=== PATIENT | male | born 1970 | race African-American/Black ===

== ENCOUNTER 2016-11-13 11:28 | Inpatient (IN) | payer OTHER ==
[2016-11-13 12:25] VITALS: BMI 28.7
--- NOTE | 2016-11-13 13:26 | HP ---
CIWA Score - CIWA Score Nausea/Vomitin-No Nausea/No Vomiting Muscle Tremors: 4-Moderate,w/Arms Extend Anxiety: 3 Agitation: 4-Moderately Restless Paroxysmal Sweats: 3 Orientation: 0-Oriented Tacttile Disturbances: 0-None Auditory Disturbances: 0-None Visual Disturbances: 0-None Headache: 1-Very Mild CIWA-Ar Total Score: 15 Admission ROS BHS - HPI Chief Complaint: I am here to detox and try again. Allergies/Adverse Reactions: Allergies Allergy/AdvReac Type Severity Reaction Status Date / Time No Known Drug Allergies Allergy Verified 11/13/16 12:58 tuna Allergy Severe Swelling Uncoded 11/13/16 12:58 History of Present Illness: pt is a 45yr old male with a history of alcohol, crack and xanax dependence seeking detox for treatment. Exam Limitations: No Limitations - Ebola screening Have you traveled outside of the country in the last 21 days: No Have you had contact with anyone from an Ebola affected area: No Have you been sick,other than usual withdrawal symptoms: No Do you have a fever: No - Review of Systems Constitutional: Chills, Loss of Appetite, Changes in sleep, Unintentional Wgt. Loss EENT: reports: Tearing, Nose Congestion Respiratory: reports: No Symptoms reported Cardiac: reports: Syncope GI: reports: Diarrhea, Poor Appetite, Poor Fluid Intake : reports: No Symptoms Reported Musculoskeletal: reports: No Symptoms Reported Integumentary: reports: Flushing, Sweating Neuro: reports: Headache, Seizure (last seizure three yrs ago.), Tingling, Tremors Endocrine: reports: Excessive Sweating, Flushing, Intolerance to Cold, Intolerance to Heat Hematology: reports: No Symptoms Reported Psychiatric: reports: Judgement Intact, Mood/Affect Appropiate, Orientated x3, Agitated, Anxious, other Other Systems: Reviewed and Negative Patient History - Patient Medical History Hx Anemia: No Hx Asthma: No Hx Chronic Obstructive Pulmonary Disease (COPD): No Hx Cancer: No Hx Cardiac Disorders: No Hx Congestive Heart Failure: No Hx Hypertension: No Hx Hypercholesterolemia: No Hx Pacemaker: No HX Cerebrovascular Accident: No Hx Seizures: Yes (ETOH SEIZURE IN 2013) Hx Dementia: No Hx Diabetes: No Hx Gastrointestinal Disorders: No Hx Liver Disease: No Hx Genitourinary Disorders: No Hx Sexually Transmitted Disorders: No Hx Renal Disease (ESRD): No Hx Thyroid Disease: No Hx Human Immunodeficiency Virus (HIV): No (negative) Hx Hepatitis C: No (negative) Hx Depression: No Hx Suicide Attempt: No (denies) Hx Bipolar Disorder: No Hx Schizophrenia: No - Patient Surgical History Past Surgical History: No Hx Neurologic Surgery: No Hx Cataract Extraction: No Hx Cardiac Surgery: No Hx Lung Surgery: No Hx Breast Surgery: No Hx Breast Biopsy: No Hx Abdominal Surgery: No Hx Appendectomy: No Hx Cholecystectomy: No Hx Genitourinary Surgery: No Hx Section: No Hx Orthopedic Surgery: No Hx Hysterectomy: No Anesthesia Reaction: No - PPD History Previous Implant?: Yes Documented Results: Negative w/proof Implanted On Prior R Admission?: Yes Date: 06/20/16 Results: 0 MM PPD to be Administered?: No - Reproductive History Patient is a Female of Child Bearing Age (11 -55 yrs old): No - Smoking Cessation Smoking history: Current every day smoker Have you smoked in the past 12 months: Yes Aproximately how many cigarettes per day: 5 Cigars Per Day: 0 Hx Chewing Tobacco Use: No Initiated information on smoking cessation: Yes 'Breaking Loose' booklet given: 11/13/16 - Substance & Tx. History Hx Alcohol Use: Yes Hx Substance Use: Yes Substance Use Type: Alcohol, Cocaine, Tranquilizers Hx Substance Use Treatment: Yes - Substances Abused Alcohol Route: Oral Frequency: Daily Amount used: 3 6PKS BEER/ 1 PINT RUM Age of first use: 25 Date of Last Use: 11/13/16 Crack Route: Smoking Frequency: Daily Amount used: $80 Age of first use: 18 Date of Last Use: 11/13/16 Alprazolam (Xanax) Route: Oral Frequency: Daily Amount used: 4-6 MG Age of first use: 25 Date of Last Use: 11/13/16 Family Disease History - Family Disease History Family Disease History: Other: Mother (ALCOHOL,) Admission Physical Exam BHS - Vital Signs Vital Signs: Vital Signs - 24 hr 11/13/16 12:23 Temperature 98.0 F Pulse Rate 90 Respiratory 20 Rate Blood Pressure 117/72 - Physical General Appearance: Yes: Appropriately Dressed, Moderate Distress, Tremorous, Irritable, Sweating, Anxious HEENTM: Yes: Normal Voice, Nasal Congestion Respiratory: Yes: Lungs Clear, Normal Breath Sounds, No Respiratory Distress Neck: Yes: No masses,lesions,Nodules Breast: Yes: Within Normal Limits Cardiology: Yes: Regular Rhythm, Regular Rate, S1, S2 Abdominal: Yes: Normal Bowel Sounds, Non Tender, Soft Genitourinary: Yes: Within Normal Limits Back: Yes: Normal Inspection Musculoskeletal: Yes: full range of Motion, Gait Steady Extremities: Yes: Normal Capillary Refill, Normal Inspection, Non-Tender, Tremors Neurological: Yes: Fully Oriented, Alert, Normal Response Integumentary: Yes: Normal Color, Diaphoresis Lymphatic: Yes: Within Normal Limits - Diagnostic (1) Sedative, hypnotic or anxiolytic dependence with withdrawal, uncomplicated Current Visit: Yes Status: Chronic (2) Alcohol dependence with uncomplicated withdrawal Current Visit: Yes Status: Chronic (3) Cocaine dependence Current Visit: Yes Status: Chronic Qualifiers: Substance use status: uncomplicated Qualified Code(s): F14.20 - Cocaine dependence, uncomplicated (4) Nicotine dependence Current Visit: Yes Status: Chronic Qualifiers: Nicotine product type: cigarettes Substance use status: uncomplicated Qualified Code(s): F17.210 - Nicotine dependence, cigarettes, uncomplicated Cleared for Admission [facility] - Detox or Rehab [facility] Level of Care: Medically Managed Detox Regimen/Protocol: Librium [facility] Breath Alcohol Content Breath Alcohol Content: 0 Urine Drug Screen - Results Drug Screen Negative: No Urine Drug Screen Results: JOE-Cocaine, BZO-Benzodiazepines, TCA-Tricyclic Antidepress
[2016-11-13] MEDS ORDERED: MAGNESIUM CITRATE 300 ML BOTTLE PO PRN (13:36)
[2016-11-13] MEDS ORDERED: MENTHOL/PHENOL 1 EACH UD MM PRN (13:36)
[2016-11-13] MEDS ORDERED: chlordiazePOXIDE HCL 25 MG CAPSULE PO PRN (13:36)
[2016-11-13] MEDS ORDERED: LOPERAMIDE HCL 2 MG CAPSULE PO PRN (13:36)
[2016-11-13] MEDS ORDERED: MAGNESIUM HYDROX 2400MG/30ML ORAL SUSPENSION 30 ML CUP PO PRN (13:36)
[2016-11-13] MEDS ORDERED: MAG HYDROX/AL HYDROX/SIMETH 30 ML UNIT-DOSE CUP PO PRN (13:36)
[2016-11-13] MEDS ORDERED: ACETAMINOPHEN 325 MG TABLET (FP) PO PRN (13:36)
[2016-11-13] MEDS ORDERED: P-EPHED 60MG/TRIPROLIDI 2.5MG TABLET PO PRN (13:36)
[2016-11-13] MEDS ORDERED: hydrOXYzine PAMOATE 50 MG CAPSULE (FP) PO PRN (13:36)
[2016-11-13] MEDS ORDERED: IBUPROFEN 400 MG TABLET (FP) PO PRN (13:36)
[2016-11-13] MEDS ORDERED: guaiFENesin/D-METHORPHAN HB 10 ML UNIT-DOSE CUPS PO PRN (13:36)
[2016-11-13] MEDS ORDERED: chlordiazePOXIDE HCL 25 MG CAPSULE PO ONE (14:04)
--- NOTE | 2016-11-13 16:21 | EKG ---
Test Reason : Blood Pressure : / mmHG Vent. Rate : 093 BPM Atrial Rate : 093 BPM P-R Int : 158 ms QRS Dur : 088 ms QT Int : 372 ms P-R-T Axes : 064 054 062 degrees QTc Int : 462 ms NORMAL SINUS RHYTHM NORMAL ECG NO PREVIOUS ECGS AVAILABLE Confirmed by NOLBETRO LEIVA MD ([id number]) on 11/13/2016 4:21:19 PM Referred By: Confirmed By:NOLBERTO LEIVA MD
[2016-11-13] MEDS: chlordiazePOXIDE HCL 25 MG CAPSULE PO SCH ×2 (17:10→22:04)
[2016-11-13 20:04] LABS: URINE APPEARANCE CLEAR; URINE BILIRUBIN NEGATIVE (NEGATIVE); URINE BLOOD NEGATIVE (NEGATIVE); URINE COLOR YELLOW; URINE GLUCOSE (UA) NEGATIVE (NEGATIVE); URINE KETONE TRACE (NEGATIVE); URINE NITRITE NEGATIVE (NEGATIVE); URINE UROBILINOGEN 2.0 E.U/dl E.U./dl (0.2-1.0)
[2016-11-13 20:09] LABS: URINE LEUK ESTERASE 2+ (NEGATIVE); URINE PROTEIN 1+ (NEGATIVE)
[2016-11-13 20:14] LABS: URINE MUCUS RARE; URINE RBC 1 /hpf (0-3); URINE WBC 58 /hpf (3-5)
[2016-11-13] MEDS: diphenhydrAMINE HCL 50 MG CAPSULE PO PRN (22:04)
[2016-11-13] MEDS: THIAMINE HCL 100 MG TABLET (FP) PO SCH (22:06)
[2016-11-14] MEDS: chlordiazePOXIDE HCL 25 MG CAPSULE PO SCH ×4 (05:27→22:41)
[2016-11-14 09:44] LABS: MCH 29.1 pg (25.7-33.7); MCHC 32.6 g/dl (32.0-35.9); MEAN CELL VOLUME 89.3 fl (80-96); MEAN PLT VOLUME 8.6 fl (7.5-11.1); PLATELET COUNT 313 K/MM3 (134-434); RDW 14.1 % (11.9-15.9)
[2016-11-14] MEDS: NICOTINE 21 MG/24 HOURS TOPICAL PATCH TD SCH (10:11)
[2016-11-14] MEDS: PRENATAL VITAMINS W/ FOLIC ACID TABLET (FP) PO SCH (10:13)
[2016-11-14 10:30] LABS: ALBUMIN 3.9 g/dl (3.4-5.0); ALK PHOS 111 U/L (45-117); ANION GAP 10 (8-16); BILIRUBIN,TOTAL 0.4 mg/dL (0.2-1.0); CALCIUM 9.4 mg/dL (8.5-10.1); CO2 29 mmol/L (21-32); CREATININE 1.2 mg/dL (0.7-1.3); GLUCOSE,RANDOM 115 mg/dL (74-106); SGOT/AST 30 U/L (15-37); SGPT/ALT 38 U/L (12-78); TOT PROT 7.5 g/dl (6.4-8.2)
--- NOTE | 2016-11-14 11:50 | PN ---
S CIWA - CIWA Score Nausea/Vomitin-No Nausea/No Vomiting Muscle Tremors: 4-Moderate,w/Arms Extend Anxiety: 3 Agitation: 4-Moderately Restless Paroxysmal Sweats: 3 Orientation: 0-Oriented Tacttile Disturbances: 0-None Auditory Disturbances: 0-None Visual Disturbances: 0-None Headache: 0-None Present CIWA-Ar Total Score: 14 BHS Progress Note (SOAP) Subjective: agitation sweats irritable interrupted sleep shakes Objective: 11/14/16 11:49 Vital Signs Temperature 97.7 F 11/14/16 10:01 Pulse Rate 86 11/14/16 10:01 Respiratory Rate 18 11/14/16 10:01 Blood Pressure 132/75 11/14/16 10:01 O2 Sat by Pulse Oximetry (%) Laboratory Tests 11/13/16 11/14/16 11/14/16 16:00 05:50 05:50 WBC 5.0 RBC 4.75 Hgb 13.9 Hct 42.5 MCV 89.3 MCHC 32.6 RDW 14.1 Plt Count 313 MPV 8.6 Sodium 140 Potassium 4.2 Chloride 101 Carbon Dioxide 29 Anion Gap 10 BUN 17 Creatinine 1.2 Creat Clearance w eGFR > 60 Random Glucose 115 H D Calcium 9.4 Total Bilirubin 0.4 D AST 30 ALT 38 Alkaline Phosphatase 111 D Total Protein 7.5 Albumin 3.9 Urine Color Yellow Urine Appearance Clear Urine pH 5.0 Ur Specific [place] 1.027 Urine Protein 1+ H Urine Glucose (UA) Negative Urine Ketones Trace H Urine Blood Negative Urine Nitrite Negative Urine Bilirubin Negative Urine Urobilinogen 2.0 e.u/dl Ur Leukocyte Esterase 2+ H Urine RBC 1 Urine WBC 58 Ur Epithelial Cells Rare Urine Mucus Rare awake/alert ambulating no acute distress Assessment: 11/14/16 11:50 withdrawal sx Plan: continue detox increase fluids ensure plus bid
[2016-11-14] MEDS: diphenhydrAMINE HCL 50 MG CAPSULE PO PRN (22:41)
[2016-11-14] MEDS: THIAMINE HCL 100 MG TABLET (FP) PO SCH (22:41)
[2016-11-15] MEDS: chlordiazePOXIDE HCL 25 MG CAPSULE PO SCH ×2 (05:47→10:02)
[2016-11-15] MEDS: PRENATAL VITAMINS W/ FOLIC ACID TABLET (FP) PO SCH (10:02)
[2016-11-15] MEDS: NICOTINE 21 MG/24 HOURS TOPICAL PATCH TD SCH (10:02)
[2016-11-15 13:48] VITALS: BP 121/75; PULSE 80; TEMP 97.9
--- NOTE | 2016-11-15 14:21 | PN ---
[facility] CIWA - CIWA Score Nausea/Vomitin-Mild Nausea/No Vomiting Muscle Tremors: 2 Anxiety: 2 Agitation: 2 Paroxysmal Sweats: 2 Orientation: 0-Oriented Tacttile Disturbances: 1-Very Mild Itch/Numbness Auditory Disturbances: 0-None Visual Disturbances: 0-None Headache: 0-None Present CIWA-Ar Total Score: 10 S Progress Note (SOAP) Subjective: interrupted sleep, sweats Objective: 11/15/16 14:20 Vital Signs Temperature 97.9 F 11/15/16 13:48 Pulse Rate 80 11/15/16 13:48 Respiratory Rate 20 11/15/16 13:48 Blood Pressure 121/75 11/15/16 13:48 O2 Sat by Pulse Oximetry (%) Laboratory Tests 11/13/16 11/14/16 11/14/16 16:00 05:50 05:50 WBC 5.0 RBC 4.75 Hgb 13.9 Hct 42.5 MCV 89.3 MCHC 32.6 RDW 14.1 Plt Count 313 MPV 8.6 Sodium 140 Potassium 4.2 Chloride 101 Carbon Dioxide 29 Anion Gap 10 BUN 17 Creatinine 1.2 Creat Clearance w eGFR > 60 Random Glucose 115 H D Calcium 9.4 Total Bilirubin 0.4 D AST 30 ALT 38 Alkaline Phosphatase 111 D Total Protein 7.5 Albumin 3.9 Urine Color Yellow Urine Appearance Clear Urine pH 5.0 Ur Specific [place] 1.027 Urine Protein 1+ H Urine Glucose (UA) Negative Urine Ketones Trace H Urine Blood Negative Urine Nitrite Negative Urine Bilirubin Negative Urine Urobilinogen 2.0 e.u/dl Ur Leukocyte Esterase 2+ H Urine RBC 1 Urine WBC 58 Ur Epithelial Cells Rare Urine Mucus Rare RPR Titer T.pallidum Ab (A) 11/14/16 05:50 WBC RBC Hgb Hct MCV MCHC RDW Plt Count MPV Sodium Potassium Chloride Carbon Dioxide Anion Gap BUN Creatinine Creat Clearance w eGFR Random Glucose Calcium Total Bilirubin AST ALT Alkaline Phosphatase Total Protein Albumin Urine Color Urine Appearance Urine pH Ur Specific [place] Urine Protein Urine Glucose (UA) Urine Ketones Urine Blood Urine Nitrite Urine Bilirubin Urine Urobilinogen Ur Leukocyte Esterase Urine RBC Urine WBC Ur Epithelial Cells Urine Mucus RPR Titer Reactive 1:4 H T.pallidum Ab (A) Previously reactive pt aox3 lying in bed in nad 11/15/16 14:47 Assessment: 11/15/16 14:21 withdrawl sx; h/o syphilis- titers unchanged 1:4-treated in 201511/15/16 14:22 11/15/16 14:23 11/15/16 14:47 Plan: cont. detox increase fluids
--- NOTE | 2016-11-15 14:50 | DS ---
[facility] Detox Discharge Summary Admission Date: 11/13/16 Discharge Date: 11/15/16 - History Present History: Alcohol Dependence, Cocaine Dependence, Sedative Dependence - Physical Exam Results Vital Signs: Vital Signs Temperature 97.9 F 11/15/16 13:48 Pulse Rate 80 11/15/16 13:48 Respiratory Rate 20 11/15/16 13:48 Blood Pressure 121/75 11/15/16 13:48 O2 Sat by Pulse Oximetry (%) - Treatment Hospital Course: Detox Protocol Followed, Detoxed Safely, Responded well, Discharged Condition Good - Medication Discharge Medications: Ambulatory Orders NK [No Known Home Medication] 08/06/16 - AMA Did Patient Leave Against Medical Advice: Yes (wants to leave -doesn't want to stay)
[2016-11-15] MEDS ORDERED: chlordiazePOXIDE 5 MG CAPSULE PO SCH (17:00)
[2016-11-16] MEDS ORDERED: chlordiazePOXIDE HCL 10 MG CAPSULE PO SCH (17:00)
== END 2016-11-15 15:07 | disposition left against medical advice (07) | DRG 770 ==
LOC: YASAS 11:28 → Y6N 13:50
PROVIDERS: ADMIT Internal Medicine Addiction Medicine; ATTEND Internal Medicine Addiction Medicine
PROC: HZ2ZZZZ Detoxification Services for Substance Abuse Treatment (ICD-10-PCS; principal; 2016-11-15)
DX: F13.230 Sedative, hypnotic or anxiolytic dependence with withdrawal, uncomplicated (principal); F10.230 Alcohol dependence with withdrawal, uncomplicated; F14.20 Cocaine dependence, uncomplicated; F17.210 Nicotine dependence, cigarettes, uncomplicated; Z59.0 Homelessness
CPT/HCPCS: 36415; 80053; 81003; 81015; 85027; 86593; 86780; 93005; 93010

== ENCOUNTER 2017-01-14 12:53 | Inpatient (IN) | payer OTHER ==
[2017-01-14 13:30] VITALS: BMI 27.8
--- NOTE | 2017-01-14 16:54 | HP ---
CIWA Score - CIWA Score Nausea/Vomitin Muscle Tremors: 3 Anxiety: 3 Agitation: 3 Paroxysmal Sweats: 2 Orientation: 0-Oriented Tacttile Disturbances: 2-Mild Itch/Numbness/Burn Auditory Disturbances: 2-Mild Harshness/Frighten Visual Disturbances: 2-Mild Sensitivity Headache: 2-Mild CIWA-Ar Total Score: 22 Admission ROS BHS - HPI Chief Complaint: i need help to stop drinking alcohol and cocaine,withdrawal symptom,last detox 11/13/16 to 11/15/16 syncope nicotine dependence longest period of sobriety 9 months Allergies/Adverse Reactions: Allergies Allergy/AdvReac Type Severity Reaction Status Date / Time No Known Drug Allergies Allergy Verified 01/14/17 15:44 tuna Allergy Severe Swelling Uncoded 01/14/17 15:44 Exam Limitations: No Limitations - Ebola screening Have you traveled outside of the country in the last 21 days: No Have you had contact with anyone from an Ebola affected area: No Have you been sick,other than usual withdrawal symptoms: No Do you have a fever: No - Review of Systems Constitutional: Loss of Appetite, Malaise, Night Sweats, Changes in sleep, Weakness, Unintentional Wgt. Loss EENT: reports: Nose Congestion Respiratory: reports: No Symptoms reported Cardiac: reports: Palpitations GI: reports: Diarrhea, Nausea, Vomiting, Abdominal cramping : reports: No Symptoms Reported Musculoskeletal: reports: Back Pain, Muscle Pain Integumentary: reports: Dryness Neuro: reports: Headache, Tremors Endocrine: reports: No Symptoms Reported Hematology: reports: No Symptoms Reported Psychiatric: reports: No Sypmtoms Reported, Judgement Intact, Mood/Affect Appropiate, Orientated x3 Patient History - Patient Medical History Hx Anemia: No Hx Asthma: No Hx Chronic Obstructive Pulmonary Disease (COPD): No Hx Cancer: No Hx Cardiac Disorders: No Hx Congestive Heart Failure: No Hx Hypertension: No Hx Hypercholesterolemia: No Hx Pacemaker: No HX Cerebrovascular Accident: No Hx Seizures: No Hx Dementia: No Hx Diabetes: No Hx Gastrointestinal Disorders: No Hx Liver Disease: No Hx Genitourinary Disorders: No Hx Sexually Transmitted Disorders: No Hx Renal Disease (ESRD): No Hx Thyroid Disease: No Hx Human Immunodeficiency Virus (HIV): No (negative last 10/17) Hx Hepatitis C: No (negative) Hx Depression: No Hx Suicide Attempt: No Hx Bipolar Disorder: No Hx Schizophrenia: No Other Medical History: no suicidal,no homicidal - Patient Surgical History Past Surgical History: No Hx Neurologic Surgery: No Hx Cataract Extraction: No Hx Cardiac Surgery: No Hx Lung Surgery: No Hx Breast Surgery: No Hx Breast Biopsy: No Hx Abdominal Surgery: No Hx Appendectomy: No Hx Cholecystectomy: No Hx Genitourinary Surgery: No Hx Section: No Hx Orthopedic Surgery: No Hx Hysterectomy: No Anesthesia Reaction: No - PPD History Previous Implant?: Yes Documented Results: Negative w/proof Implanted On Prior [facility] Admission?: Yes Date: 06/20/16 Results: 0 MM PPD to be Administered?: No - Smoking Cessation Smoking history: Current every day smoker Have you smoked in the past 12 months: Yes Aproximately how many cigarettes per day: 5 Cigars Per Day: 0 Hx Chewing Tobacco Use: No Initiated information on smoking cessation: Yes 'Breaking Loose' booklet given: 01/14/17 - Substance & Tx. History Hx Alcohol Use: Yes Substance Use Type: Alcohol, Cocaine Hx Substance Use Treatment: Yes ([facility] 11/13/16 to 11/15/16) - Substances Abused Alcohol Route: Oral Frequency: Daily Amount used: rum(1 pint)/beer(3-6pks-16oz cans) Age of first use: 25 Date of Last Use: 01/14/17 Crack Route: Smoking Frequency: Daily Amount used: $40-80 Age of first use: 18 Date of Last Use: 01/14/17 Family Disease History - Family Disease History Family Disease History: Other: Mother (ALCOHOL,) Admission Physical Exam S - Vital Signs Vital Signs: Vital Signs - 24 hr 01/14/17 13:25 Temperature 97.4 F L Pulse Rate 78 Respiratory 20 Rate Blood Pressure 124/87 - Physical General Appearance: Yes: Moderate Distress, Tremorous, Irritable, Sweating, Anxious HEENTM: Yes: Hearing grossly Normal, Normal ENT Inspection, ERIK Respiratory: Yes: Lungs Clear, Normal Breath Sounds, No Respiratory Distress Neck: Yes: Within Normal Limits, Supple, Trachea in good position Breast: Yes: Within Normal Limits Cardiology: Yes: Tachycardia Abdominal: Yes: Within Normal Limits, Normal Bowel Sounds, Non Tender, Soft Genitourinary: Yes: Within Normal Limits Back: Yes: Within Normal Limits, Normal Inspection, Muscle Spasm Musculoskeletal: Yes: Back pain, Muscle Pain Extremities: Yes: Within Normal Limits, Normal Range of Motion, Tremors Neurological: Yes: milk powder grinder II-XII NML intact, Fully Oriented, Alert, Motor Strength 5/5 Integumentary: Yes: Dry Lymphatic: Yes: Within Normal Limits - Diagnostic (1) Alcohol dependence with uncomplicated withdrawal Current Visit: No Status: Chronic (2) Cocaine dependence Current Visit: No Status: Chronic Qualifiers: Substance use status: uncomplicated Qualified Code(s): F14.20 - Cocaine dependence, uncomplicated (3) Nicotine dependence Current Visit: No Status: Chronic Qualifiers: Nicotine product type: cigarettes Substance use status: uncomplicated Qualified Code(s): F17.210 - Nicotine dependence, cigarettes, uncomplicated (4) Weight loss Current Visit: Yes Status: Acute (5) Syncope Current Visit: Yes Status: Acute BHS Breath Alcohol Content Breath Alcohol Content: 0 Urine Drug Screen - Results Drug Screen Negative: No Urine Drug Screen Results: JOE-Cocaine
[2017-01-14] MEDS ORDERED: MAGNESIUM CITRATE 300 ML BOTTLE PO PRN (17:06)
[2017-01-14] MEDS ORDERED: MAGNESIUM HYDROX 2400MG/30ML ORAL SUSPENSION 30 ML CUP PO PRN (17:06)
[2017-01-14] MEDS ORDERED: ACETAMINOPHEN 325 MG TABLET (FP) PO PRN (17:06)
[2017-01-14] MEDS ORDERED: MENTHOL/PHENOL 1 EACH UD MM PRN (17:06)
[2017-01-14] MEDS ORDERED: IBUPROFEN 400 MG TABLET (FP) PO PRN (17:06)
[2017-01-14] MEDS ORDERED: guaiFENesin/D-METHORPHAN HB 10 ML UNIT-DOSE CUPS PO PRN (17:06)
[2017-01-14] MEDS ORDERED: chlordiazePOXIDE HCL 25 MG CAPSULE PO PRN (17:06)
[2017-01-14] MEDS ORDERED: MAG HYDROX/AL HYDROX/SIMETH 30 ML UNIT-DOSE CUP PO PRN (17:06)
[2017-01-14] MEDS ORDERED: P-EPHED 60MG/TRIPROLIDI 2.5MG TABLET PO PRN (17:06)
[2017-01-14] MEDS ORDERED: LOPERAMIDE HCL 2 MG CAPSULE PO PRN (17:06)
[2017-01-14] MEDS ORDERED: chlordiazePOXIDE HCL 25 MG CAPSULE PO ONE (17:06)
[2017-01-14] MEDS ORDERED: hydrOXYzine PAMOATE 50 MG CAPSULE (FP) PO PRN (17:06)
[2017-01-14] MEDS: THIAMINE HCL 100 MG TABLET (FP) PO SCH (22:51)
[2017-01-14] MEDS: chlordiazePOXIDE HCL 25 MG CAPSULE PO SCH (22:51)
[2017-01-14] MEDS: diphenhydrAMINE HCL 50 MG CAPSULE PO PRN (22:52)
[2017-01-15] MEDS: chlordiazePOXIDE HCL 25 MG CAPSULE PO SCH ×4 (05:32→22:33)
--- NOTE | 2017-01-15 08:43 | EKG ---
Test Reason : Blood Pressure : / mmHG Vent. Rate : 085 BPM Atrial Rate : 085 BPM P-R Int : 178 ms QRS Dur : 082 ms QT Int : 372 ms P-R-T Axes : 067 056 064 degrees QTc Int : 442 ms NORMAL SINUS RHYTHM POSSIBLE LEFT ATRIAL ENLARGEMENT BORDERLINE ECG WHEN COMPARED WITH ECG OF 13-NOV-2016 14:41, NO SIGNIFICANT CHANGE WAS FOUND Confirmed by ABELARDO TORRES MD ([id number]) on 01/15/2017 8:43:03 AM Referred By: Confirmed By:ABELARDO TORRES MD
[2017-01-15 10:18] LABS: MCH 29.3 pg (25.7-33.7); MCHC 33.1 g/dl (32.0-35.9); MEAN CELL VOLUME 88.4 fl (80-96); MEAN PLT VOLUME 8.3 fl (7.5-11.1); PLATELET COUNT 241 K/MM3 (134-434); RDW 13.8 % (11.9-15.9); WHITE BLOOD COUNT 5.3 K/mm3 (4.0-10.0)
[2017-01-15 10:39] LABS: ALBUMIN 3.4 g/dl (3.4-5.0); ALK PHOS 75 U/L (45-117); ANION GAP 8 (8-16); BILIRUBIN,TOTAL 0.4 mg/dL (0.2-1.0); CALCIUM 8.6 mg/dL (8.5-10.1); CO2 28 mmol/L (21-32); COCKROFT - GAULT 105.37; CREATININE 1.1 mg/dL (0.7-1.3); GLUCOSE,RANDOM 83 mg/dL (74-106); SGOT/AST 15 U/L (15-37); SGPT/ALT 33 U/L (12-78); TOT PROT 6.7 g/dl (6.4-8.2)
[2017-01-15] MEDS: PRENATAL VITAMINS W/ FOLIC ACID TABLET (FP) PO SCH (10:48)
[2017-01-15 13:29] LABS: URINE APPEARANCE CLEAR; URINE BILIRUBIN NEGATIVE (NEGATIVE); URINE BLOOD NEGATIVE (NEGATIVE); URINE COLOR YELLOW; URINE GLUCOSE (UA) NEGATIVE (NEGATIVE); URINE KETONE NEGATIVE (NEGATIVE); URINE NITRITE NEGATIVE (NEGATIVE); URINE PROTEIN NEGATIVE (NEGATIVE); URINE UROBILINOGEN NEGATIVE E.U./dl (0.2-1.0)
--- NOTE | 2017-01-15 13:32 | PN ---
S CIWA - CIWA Score Nausea/Vomitin-No Nausea/No Vomiting Muscle Tremors: 4-Moderate,w/Arms Extend Anxiety: 3 Agitation: 3 Paroxysmal Sweats: 3 Orientation: 0-Oriented Tacttile Disturbances: 0-None Auditory Disturbances: 0-None Visual Disturbances: 0-None Headache: 0-None Present CIWA-Ar Total Score: 13 BHS Progress Note (SOAP) Subjective: Sweating,interrupted sleep,restless,tremors,anxiety Objective: 01/15/17 13:31 Vital Signs - 8 hr 01/15/17 01/15/17 01/15/17 06:26 09:27 13:18 Temperature 95.6 F L 96.2 F L 98.1 F Pulse Rate 89 80 88 Respiratory 18 18 16 Rate Blood Pressure 121/83 133/76 127/78 Laboratory Tests 01/15/17 01/15/17 01/15/17 07:00 07:00 07:00 WBC 5.3 RBC 4.77 Hgb 14.0 Hct 42.2 MCV 88.4 MCHC 33.1 RDW 13.8 Plt Count 241 D MPV 8.3 Sodium 139 Potassium 4.0 Chloride 103 Carbon Dioxide 28 Anion Gap 8 BUN 15 Creatinine 1.1 Creat Clearance w eGFR > 60 Random Glucose 83 D Calcium 8.6 Total Bilirubin 0.4 AST 15 D ALT 33 Alkaline Phosphatase 75 D Total Protein 6.7 Albumin 3.4 RPR Titer Reactive 1:4 H T.pallidum Ab (MHA) Previously reactive labs noted Assessment: 01/15/17 13:32 Withdrawal sx. Plan: Continue detox
[2017-01-15 13:57] LABS: URINE LEUK ESTERASE TRACE (NEGATIVE)
[2017-01-15 14:00] LABS: CALCIUM OXALATE CRYSTALS FEW /hpf (NONE SEEN); URINE MUCUS RARE; URINE RBC <1 /hpf (0-3); URINE WBC 11 /hpf (3-5)
[2017-01-15] MEDS: diphenhydrAMINE HCL 50 MG CAPSULE PO PRN (22:33)
[2017-01-15] MEDS: THIAMINE HCL 100 MG TABLET (FP) PO SCH (22:33)
[2017-01-16] MEDS: chlordiazePOXIDE HCL 25 MG CAPSULE PO SCH ×3 (05:48→17:39)
[2017-01-16] MEDS: PRENATAL VITAMINS W/ FOLIC ACID TABLET (FP) PO SCH (10:38)
--- NOTE | 2017-01-16 12:58 | PN ---
S CIWA - CIWA Score Nausea/Vomitin-No Nausea/No Vomiting Muscle Tremors: 4-Moderate,w/Arms Extend Anxiety: 3 Agitation: 4-Moderately Restless Paroxysmal Sweats: 3 Orientation: 0-Oriented Tacttile Disturbances: 0-None Auditory Disturbances: 0-None Visual Disturbances: 0-None Headache: 0-None Present CIWA-Ar Total Score: 14 BHS Progress Note (SOAP) Subjective: Anxiety,tremors,sweating,interrupted sleep,restless Objective: 01/16/17 12:57 Vital Signs - 8 hr 01/16/17 01/16/17 06:24 09:16 Temperature 96.8 F L Pulse Rate 86 84 Respiratory 18 18 Rate Blood Pressure 100/70 113/82 Laboratory Tests 01/15/17 01/15/17 01/15/17 07:00 07:00 07:00 WBC 5.3 RBC 4.77 Hgb 14.0 Hct 42.2 MCV 88.4 MCHC 33.1 RDW 13.8 Plt Count 241 D MPV 8.3 Sodium 139 Potassium 4.0 Chloride 103 Carbon Dioxide 28 Anion Gap 8 BUN 15 Creatinine 1.1 Creat Clearance w eGFR > 60 Random Glucose 83 D Calcium 8.6 Total Bilirubin 0.4 AST 15 D ALT 33 Alkaline Phosphatase 75 D Total Protein 6.7 Albumin 3.4 Urine Color Urine Appearance Urine pH Ur Specific [place] Urine Protein Urine Glucose (UA) Urine Ketones Urine Blood Urine Nitrite Urine Bilirubin Urine Urobilinogen Ur Leukocyte Esterase Urine RBC Urine WBC Ur Epithelial Cells Calcium Oxalate Crystal Urine Mucus RPR Titer Reactive 1:4 H T.pallidum Ab (A) Previously reactive 01/15/17 10:40 WBC RBC Hgb Hct MCV MCHC RDW Plt Count MPV Sodium Potassium Chloride Carbon Dioxide Anion Gap BUN Creatinine Creat Clearance w eGFR Random Glucose Calcium Total Bilirubin AST ALT Alkaline Phosphatase Total Protein Albumin Urine Color Yellow Urine Appearance Clear Urine pH 5.0 Ur Specific [place] 1.025 Urine Protein Negative Urine Glucose (UA) Negative Urine Ketones Negative Urine Blood Negative Urine Nitrite Negative Urine Bilirubin Negative Urine Urobilinogen Negative Ur Leukocyte Esterase Trace H D Urine RBC <1 Urine WBC 11 Ur Epithelial Cells Rare Calcium Oxalate Crystal Few Urine Mucus Rare RPR Titer T.pallidum Ab (MHA) labs noted Assessment: 01/16/17 12:58 Withdrawal sx. Plan: Continue detox
[2017-01-16] MEDS: diphenhydrAMINE HCL 50 MG CAPSULE PO PRN (22:29)
[2017-01-16] MEDS: THIAMINE HCL 100 MG TABLET (FP) PO SCH (22:29)
[2017-01-16] MEDS: chlordiazePOXIDE 5 MG CAPSULE PO SCH (22:29)
[2017-01-17] MEDS: chlordiazePOXIDE 5 MG CAPSULE PO SCH (05:37)
[2017-01-17 06:31] VITALS: BP 106/76; PULSE 83; TEMP 96.5
--- NOTE | 2017-01-17 08:37 | DS ---
[facility] Detox Discharge Summary Admission Date: 01/14/17 Discharge Date: 01/17/17 - History Present History: Alcohol Dependence, Cocaine Dependence Additional Comments: DECLINED TO COMPLETE DETOX PROTOCOL AND STATES "I JUST WANT TO LEAVE. NO REASONS ". ALERT O X 3. NAD. LAB RESULTS GIVEN TO PATIENT. INSTRUCTED TO F/U WITH PMD FOR MEDICAL MANAGEMENT. Pertinent Past History: DENIES PMHx OR PPSYCH Hx - Physical Exam Results Vital Signs: Vital Signs Temperature 96.5 F L 01/17/17 06:30 Pulse Rate 83 01/17/17 06:30 Respiratory Rate 18 01/17/17 06:30 Blood Pressure 106/76 01/17/17 06:30 O2 Sat by Pulse Oximetry (%) Pertinent Admission Physical Exam Findings: WITHDRAWAL SX Laboratory Last Values WBC 5.3 K/mm3 (4.0-10.0) 01/15/17 07:00 RBC 4.77 M/mm3 (4.00-5.60) 01/15/17 07:00 Hgb 14.0 GM/dL (11.7-16.9) 01/15/17 07:00 Hct 42.2 % (35.4-49) 01/15/17 07:00 MCV 88.4 fl (80-96) 01/15/17 07:00 MCHC 33.1 g/dl (32.0-35.9) 01/15/17 07:00 RDW 13.8 % (11.9-15.9) 01/15/17 07:00 Plt Count 241 K/MM3 (134-434) D 01/15/17 07:00 MPV 8.3 fl (7.5-11.1) 01/15/17 07:00 Sodium 139 mmol/L (136-145) 01/15/17 07:00 Potassium 4.0 mmol/L (3.5-5.1) 01/15/17 07:00 Chloride 103 mmol/L (98-107) 01/15/17 07:00 Carbon Dioxide 28 mmol/L (21-32) 01/15/17 07:00 Anion Gap 8 (8-16) 01/15/17 07:00 BUN 15 mg/dL (7-18) 01/15/17 07:00 Creatinine 1.1 mg/dL (0.7-1.3) 01/15/17 07:00 Creat Clearance w eGFR > 60 (>60) 01/15/17 07:00 Random Glucose 83 mg/dL (74-106) D 01/15/17 07:00 Calcium 8.6 mg/dL (8.5-10.1) 01/15/17 07:00 Total Bilirubin 0.4 mg/dL (0.2-1.0) 01/15/17 07:00 AST 15 U/L (15-37) D 01/15/17 07:00 ALT 33 U/L (12-78) 01/15/17 07:00 Alkaline Phosphatase 75 U/L (45-117) D 01/15/17 07:00 Total Protein 6.7 g/dl (6.4-8.2) 01/15/17 07:00 Albumin 3.4 g/dl (3.4-5.0) 01/15/17 07:00 Urine Color Yellow 01/15/17 10:40 Urine Appearance Clear 01/15/17 10:40 Urine pH 5.0 (5.0-8.0) 01/15/17 10:40 Ur Specific [place] 1.025 (1.001-1.035) 01/15/17 10:40 Urine Protein Negative (NEGATIVE) 01/15/17 10:40 Urine Glucose (UA) Negative (NEGATIVE) 01/15/17 10:40 Urine Ketones Negative (NEGATIVE) 01/15/17 10:40 Urine Blood Negative (NEGATIVE) 01/15/17 10:40 Urine Nitrite Negative (NEGATIVE) 01/15/17 10:40 Urine Bilirubin Negative (NEGATIVE) 01/15/17 10:40 Urine Urobilinogen Negative E.U./dl (0.2-1.0) 01/15/17 10:40 Ur Leukocyte Esterase Trace (NEGATIVE) H D 01/15/17 10:40 Urine RBC <1 /hpf (0-3) 01/15/17 10:40 Urine WBC 11 /hpf (3-5) 01/15/17 10:40 Ur Epithelial Cells Rare /hpf (FEW) 01/15/17 10:40 Calcium Oxalate Crystal Few /hpf (NONE SEEN) 01/15/17 10:40 Urine Mucus Rare 01/15/17 10:40 RPR Titer Reactive 1:4 (NONREACTIVE) H 01/15/17 07:00 T.pallidum Ab ([facility]) Previously reactive (NONREACTIVE) 01/15/17 07:00 - Treatment Hospital Course: Discharged Condition Good - Medication Discharge Medications: Ambulatory Orders NK [No Known Home Medication] 08/06/16 - Diagnosis (1) Alcohol dependence with uncomplicated withdrawal Current Visit: No Status: Chronic (2) Cocaine dependence Current Visit: No Status: Chronic Qualifiers: Substance use status: uncomplicated Qualified Code(s): F14.20 - Cocaine dependence, uncomplicated (3) Nicotine dependence Current Visit: No Status: Chronic Qualifiers: Nicotine product type: cigarettes Substance use status: uncomplicated Qualified Code(s): F17.210 - Nicotine dependence, cigarettes, uncomplicated (4) Sedative, hypnotic or anxiolytic dependence with withdrawal, uncomplicated Current Visit: No Status: Inactive - AMA Did Patient Leave Against Medical Advice: Yes (AMA)
[2017-01-17] MEDS ORDERED: chlordiazePOXIDE HCL 10 MG CAPSULE PO SCH (23:00)
== END 2017-01-17 09:31 | disposition left against medical advice (07) | DRG 770 ==
LOC: YASAS 12:53 → Y3N 16:00
PROVIDERS: ADMIT Internal Medicine; ATTEND Internal Medicine
PROC: HZ2ZZZZ Detoxification Services for Substance Abuse Treatment (ICD-10-PCS; principal; 2017-01-17)
DX: F13.230 Sedative, hypnotic or anxiolytic dependence with withdrawal, uncomplicated (principal); F10.230 Alcohol dependence with withdrawal, uncomplicated; F14.20 Cocaine dependence, uncomplicated; F12.10 Cannabis abuse, uncomplicated; R55 Syncope and collapse; R63.4 Abnormal weight loss; Z68.27 Body mass index [BMI] 27.0-27.9, adult; Z59.0 Homelessness
CPT/HCPCS: 36415; 80053; 81003; 81015; 85027; 86593; 86780; 93005; 93010

== ENCOUNTER 2017-07-23 08:26 | Inpatient (IN) | payer OTHER ==
[2017-07-23 08:39] VITALS: BMI 27.1
--- NOTE | 2017-07-23 13:58 | HP ---
CIWA Score - CIWA Score Nausea/Vomitin-Int. Nausea w/Dry Heave Muscle Tremors: 4-Moderate,w/Arms Extend Anxiety: 4-Mod. Anxious/Guarded Agitation: 0-Normal Activity Paroxysmal Sweats: 1-Minimal Palms Moist Orientation: 0-Oriented Tacttile Disturbances: 0-None Auditory Disturbances: 0-None Visual Disturbances: 0-None Headache: 0-None Present CIWA-Ar Total Score: 13 Admission ROS S - HPI Chief Complaint: DETOX TX FOR ALCOHOL AND XANAX DEPENDENCE Allergies/Adverse Reactions: Allergies Allergy/AdvReac Type Severity Reaction Status Date / Time No Known Drug Allergies Allergy Verified 07/23/17 13:25 tuna Allergy Severe Swelling Uncoded 07/23/17 13:25 History of Present Illness: 46 Y/O AA MALE WITH A HX OF ALCOHOL,XANAX AND COCAINE DEPENDENCE SEEKING DETOX TX. Exam Limitations: No Limitations - Ebola screening Have you traveled outside of the country in the last 21 days: No Have you had contact with anyone from an Ebola affected area: No Have you been sick,other than usual withdrawal symptoms: No Do you have a fever: No - Review of Systems Constitutional: Chills, Loss of Appetite, Night Sweats, Changes in sleep, Unintentional Wgt. Loss EENT: reports: Blurred Vision, Tearing, Nose Congestion Respiratory: reports: No Symptoms reported Cardiac: reports: Lightheadedness GI: reports: Constipated, Diarrhea, Nausea, Poor Appetite, Poor Fluid Intake, Vomiting, Indigestion : reports: Frequency Musculoskeletal: reports: Joint Pain, Muscle Pain Integumentary: reports: No Symptoms Reported Neuro: reports: Headache, Numbness, Seizure (HX SEIZURE, LAST EPISODE 3 YRS AGO) , Tingling, Tremors, Unsteady Gait, Dizziness Endocrine: reports: No Symptoms Reported Hematology: reports: No Symptoms Reported Psychiatric: reports: Anxious Other Systems: Reviewed and Negative Patient History - Patient Medical History Hx Anemia: No Hx Asthma: No Hx Chronic Obstructive Pulmonary Disease (COPD): No Hx Cancer: No Hx Cardiac Disorders: No Hx Congestive Heart Failure: No Hx Hypertension: No Hx Hypercholesterolemia: No Hx Pacemaker: No HX Cerebrovascular Accident: No Hx Seizures: No Hx Dementia: No Hx Diabetes: No Hx Gastrointestinal Disorders: No Hx Liver Disease: No Hx Genitourinary Disorders: No Hx Sexually Transmitted Disorders: Yes (syphilis Hx) Hx Renal Disease (ESRD): No Hx Thyroid Disease: No Hx Human Immunodeficiency Virus (HIV): No (NEGATIVE HX) Hx Hepatitis C: No (negative) Hx Depression: No Hx Suicide Attempt: No (DENIES) Hx Bipolar Disorder: No Hx Schizophrenia: No - Patient Surgical History Past Surgical History: No Hx Neurologic Surgery: No Hx Cataract Extraction: No Hx Cardiac Surgery: No Hx Lung Surgery: No Hx Breast Surgery: No Hx Breast Biopsy: No Hx Abdominal Surgery: No Hx Appendectomy: No Hx Cholecystectomy: No Hx Genitourinary Surgery: No Hx Orthopedic Surgery: No Anesthesia Reaction: No - PPD History Previous Implant?: Yes Documented Results: Negative w/proof Implanted On Prior [facility] Admission?: Yes Date: 06/20/16 Results: 0 mm PPD to be Administered?: Yes - Reproductive History Patient is a Female of Child Bearing Age (11 -55 yrs old): No (MALE) Patient : (N/A) - Smoking Cessation Smoking history: Current every day smoker Have you smoked in the past 12 months: Yes Aproximately how many cigarettes per day: 5 Cigars Per Day: 0 Hx Chewing Tobacco Use: No Initiated information on smoking cessation: Yes 'Breaking Loose' booklet given: 07/23/17 - Substance & Tx. History Hx Alcohol Use: Yes (BEER/RUM) Hx Substance Use: Yes (XANAX/CRACK) Substance Use Type: Alcohol, Cocaine, Tranquilizers Hx Substance Use [facility]: Yes [facility] - Substances Abused Crack Route: Smoking Frequency: Daily Amount used: $60-80 Age of first use: 18 Date of Last Use: 07/23/17 Alcohol-beer/rum Route: Oral Frequency: Daily Amount used: 3-6 pks./1 pt. Age of first use: 25 Date of Last Use: 07/23/17 Xanax Route: Oral Frequency: 1-2 times per week Amount used: 4 mg. Age of first use: 46 Date of Last Use: 07/21/17 Family Disease History - Family Disease History Family Disease History: Other: Mother (ALCOHOL,) Admission Physical Exam BHS - Vital Signs Vital Signs: Vital Signs - 24 hr 07/23/17 08:36 Temperature 98.0 F Pulse Rate 80 Respiratory 18 Rate Blood Pressure 140/92 - Physical General Appearance: Yes: Moderate Distress, Irritable, Anxious HEENTM: Yes: EOMI, Normocephalic, ERIK, Pharynx Normal Respiratory: Yes: Chest Non-Tender, Lungs Clear, Normal Breath Sounds, No Respiratory Distress Neck: Yes: No masses,lesions,Nodules, Supple, Trachea in good position Breast: Yes: Breast Exam Deferred Cardiology: Yes: Regular Rhythm, Regular Rate, S1, S2 Abdominal: Yes: Normal Bowel Sounds, Non Tender, Soft Genitourinary: Yes: Other (N/C) Back: Yes: Within Normal Limits Musculoskeletal: Yes: full range of Motion, Gait Steady Extremities: Yes: Normal Range of Motion, Non-Tender, Other (LEFT LOWER EXTREMITY SLIGHTLY BIGGER THAN RIGHT. VARICOSE VEINS ON LEFT LOWER LEG. STATES HX SONOGRAM WITH NEGATIVE RESULT FOR CLOT.) Neurological: Yes: director of corporate sales II-XII NML intact, Fully Oriented, Alert, Motor Strength 5/5 Integumentary: Yes: Warm Lymphatic: Yes: Within Normal Limits - Diagnostic (1) Alcohol dependence with uncomplicated withdrawal Current Visit: Yes Status: Acute (2) Nicotine dependence Current Visit: Yes Status: Chronic Qualifiers: Nicotine product type: cigarettes Substance use status: in withdrawal Qualified Code(s): F17.213 - Nicotine dependence, cigarettes, with withdrawal; F17.213 - Nicotine dependence, cigarettes, with withdrawal (3) Cocaine dependence Current Visit: Yes Status: Acute Qualifiers: Substance use status: uncomplicated Qualified Code(s): F14.20 - Cocaine dependence, uncomplicated; F14.20 - Cocaine dependence, uncomplicated; F14.20 - Cocaine dependence, uncomplicated (4) Sedative, hypnotic or anxiolytic dependence with withdrawal, uncomplicated Current Visit: Yes Status: Acute Comment: STARTED USING "XANAX THIS YEAR" Cleared for Admission [facility] - Detox or Rehab [facility] Level of Care: Medically Managed Detox Regimen/Protocol: Librium [facility] Breath Alcohol Content Breath Alcohol Content: 0 Urine Drug Screen - Results Drug Screen Negative: No Urine Drug Screen Results: JOE-Cocaine, BZO-Benzodiazepines
[2017-07-23] MEDS ORDERED: P-EPHED 60MG/TRIPROLIDI 2.5MG TABLET PO PRN (14:08)
[2017-07-23] MEDS ORDERED: MAGNESIUM CITRATE 300 ML BOTTLE PO PRN (14:08)
[2017-07-23] MEDS ORDERED: MAGNESIUM HYDROX 2400MG/30ML ORAL SUSPENSION 30 ML CUP PO PRN (14:08)
[2017-07-23] MEDS ORDERED: IBUPROFEN 400 MG TABLET (FP) PO PRN (14:08)
[2017-07-23] MEDS ORDERED: LOPERAMIDE HCL 2 MG CAPSULE PO PRN (14:08)
[2017-07-23] MEDS ORDERED: hydrOXYzine PAMOATE 50 MG CAPSULE (FP) PO PRN (14:08)
[2017-07-23] MEDS ORDERED: MENTHOL/PHENOL 1 EACH UD MM PRN (14:08)
[2017-07-23] MEDS ORDERED: guaiFENesin/D-METHORPHAN HB 10 ML UNIT-DOSE CUPS PO PRN (14:08)
[2017-07-23] MEDS ORDERED: NICOTINE POLACRILEX 2 MG GUM BUC PRN (14:08)
[2017-07-23] MEDS ORDERED: ACETAMINOPHEN 325 MG TABLET (FP) PO PRN (14:08)
[2017-07-23] MEDS ORDERED: chlordiazePOXIDE HCL 25 MG CAPSULE PO PRN (14:08)
[2017-07-23] MEDS ORDERED: MAG HYDROX/AL HYDROX/SIMETH 30 ML UNIT-DOSE CUP PO PRN (14:08)
[2017-07-23] MEDS ORDERED: chlordiazePOXIDE HCL 25 MG CAPSULE PO ONE (14:38)
[2017-07-23] MEDS: NICOTINE 14 MG/24 HOURS TOPICAL PATCH TD SCH (15:14)
[2017-07-23 16:16] LABS: MCHC 34.2 g/dl (32.0-35.9); MEAN CELL VOLUME 87.6 fl (80-96); MEAN PLT VOLUME 8.4 fl (7.5-11.1); PLATELET COUNT 280 K/MM3 (134-434); RDW 14.5 % (11.9-15.9); WHITE BLOOD COUNT 5.2 K/mm3 (4.0-10.0)
[2017-07-23 16:43] LABS: ANION GAP 10 (8-16); CALCIUM 8.9 mg/dL (8.5-10.1); CO2 28 mmol/L (21-32); GLUCOSE,RANDOM 100 mg/dL (74-106)
[2017-07-23 16:47] LABS: ALK PHOS 88 U/L (45-117); BILIRUBIN,TOTAL 0.9 mg/dL (0.2-1.0); CREATININE 0.9 mg/dL (0.7-1.3); SGOT/AST 40 U/L (15-37); SGPT/ALT 67 U/L (12-78); TOT PROT 7.6 g/dl (6.4-8.2)
[2017-07-23 17:26] LABS: URINE APPEARANCE SLCLOUDY; URINE BILIRUBIN NEGATIVE (NEGATIVE); URINE BLOOD NEGATIVE (NEGATIVE); URINE COLOR AMBER; URINE GLUCOSE (UA) NEGATIVE (NEGATIVE); URINE KETONE NEGATIVE (NEGATIVE); URINE NITRITE NEGATIVE (NEGATIVE); URINE UROBILINOGEN 4.0 E.U/dl mg/dL (0.2-1.0)
[2017-07-23 17:27] LABS: URINE PROTEIN 2+ (NEGATIVE)
[2017-07-23 17:36] LABS: URINE MUCUS RARE; URINE RBC 1 /hpf (0-3); URINE WBC 11 /hpf (3-5)
[2017-07-23] MEDS: chlordiazePOXIDE HCL 25 MG CAPSULE PO SCH ×2 (17:55→22:48)
[2017-07-23 21:09] LABS: URINE LEUK ESTERASE Negative (NEGATIVE)
[2017-07-23] MEDS: THIAMINE HCL 100 MG TABLET (FP) PO SCH (22:50)
[2017-07-24] MEDS: chlordiazePOXIDE HCL 25 MG CAPSULE PO SCH ×4 (05:23→22:55)
--- NOTE | 2017-07-24 10:40 | PN ---
S CIWA - CIWA Score Nausea/Vomitin Muscle Tremors: 3 Anxiety: 3 Agitation: 2 Paroxysmal Sweats: 1-Minimal Palms Moist Orientation: 0-Oriented Tacttile Disturbances: 1-Very Mild Itch/Numbness Auditory Disturbances: 1-Very Mild Visual Disturbances: 0-None Headache: 2-Mild CIWA-Ar Total Score: 16 BHS Progress Note (SOAP) Subjective: alert,irritable,anxious,interrupted sleep,tremor,nausea Objective: Vital Signs Temperature 97.4 F L 07/24/17 10:17 Pulse Rate 104 H 07/24/17 10:17 Respiratory Rate 18 07/24/17 10:17 Blood Pressure 118/79 07/24/17 10:17 O2 Sat by Pulse Oximetry (%) 07/24/17 10:38 ecg nsr normal Laboratory Last Values WBC 5.2 K/mm3 (4.0-10.0) 07/23/17 14:15 RBC 4.71 M/mm3 (4.00-5.60) 07/23/17 14:15 Hgb 14.1 GM/dL (11.7-16.9) 07/23/17 14:15 Hct 41.3 % (35.4-49) 07/23/17 14:15 MCV 87.6 fl (80-96) 07/23/17 14:15 MCH 30.0 pg (25.7-33.7) 07/23/17 14:15 MCHC 34.2 g/dl (32.0-35.9) 07/23/17 14:15 RDW 14.5 % (11.9-15.9) 07/23/17 14:15 Plt Count 280 K/MM3 (134-434) 07/23/17 14:15 MPV 8.4 fl (7.5-11.1) 07/23/17 14:15 Sodium 139 mmol/L (136-145) 07/23/17 14:15 Potassium 4.1 mmol/L (3.5-5.1) 07/23/17 14:15 Chloride 101 mmol/L (98-107) 07/23/17 14:15 Carbon Dioxide 28 mmol/L (21-32) 07/23/17 14:15 Anion Gap 10 (8-16) 07/23/17 14:15 BUN 15 mg/dL (7-18) 07/23/17 14:15 Creatinine 0.9 mg/dL (0.7-1.3) 07/23/17 14:15 Creat Clearance w eGFR > 60 (>60) 07/23/17 14:15 Random Glucose 100 mg/dL (74-106) D 07/23/17 14:15 Calcium 8.9 mg/dL (8.5-10.1) 07/23/17 14:15 Total Bilirubin 0.9 mg/dL (0.2-1.0) D 07/23/17 14:15 AST 40 U/L (15-37) H D 07/23/17 14:15 ALT 67 U/L (12-78) D 07/23/17 14:15 Alkaline Phosphatase 88 U/L (45-117) 07/23/17 14:15 Total Protein 7.6 g/dl (6.4-8.2) 07/23/17 14:15 Albumin 4.0 g/dl (3.4-5.0) 07/23/17 14:15 Urine Color Ana 07/23/17 15:30 Urine Appearance Slcloudy 07/23/17 15:30 Urine pH 6.0 (5.0-8.0) 07/23/17 15:30 Ur Specific [place] 1.020 (1.005-1.025) 07/23/17 15:30 Urine Protein 2+ (NEGATIVE) H 07/23/17 15:30 Urine Glucose (UA) Negative (NEGATIVE) 07/23/17 15:30 Urine Ketones Negative (NEGATIVE) 07/23/17 15:30 Urine Blood Negative (NEGATIVE) 07/23/17 15:30 Urine Nitrite Negative (NEGATIVE) 07/23/17 15:30 Urine Bilirubin Negative (NEGATIVE) 07/23/17 15:30 Urine Urobilinogen 4.0 e.u/dl mg/dL (0.2-1.0) 07/23/17 15:30 Ur Leukocyte Esterase Negative (NEGATIVE) 07/23/17 15:30 Urine RBC 1 /hpf (0-3) 07/23/17 15:30 Urine WBC 11 /hpf (3-5) 07/23/17 15:30 Ur Epithelial Cells Rare /hpf (FEW) 07/23/17 15:30 Urine Mucus Rare 07/23/17 15:30 Assessment: 10/24/17 10:38 07/24/17 10:39 withdrawal symptom Plan: continue detox
[2017-07-24] MEDS: NICOTINE 14 MG/24 HOURS TOPICAL PATCH TD SCH (10:44)
[2017-07-24] MEDS: PRENATAL VITAMINS W/ FOLIC ACID TABLET (FP) PO SCH (10:44)
--- NOTE | 2017-07-24 20:33 | EKG ---
Test Reason : Blood Pressure : / mmHG Vent. Rate : 061 BPM Atrial Rate : 061 BPM P-R Int : 148 ms QRS Dur : 080 ms QT Int : 416 ms P-R-T Axes : 025 045 051 degrees QTc Int : 418 ms NORMAL SINUS RHYTHM NORMAL ECG WHEN COMPARED WITH ECG OF 14-JAN-2017 17:19, NO SIGNIFICANT CHANGE WAS FOUND Confirmed by ASIA MCCALL MD ([id number]) on 07/24/2017 8:33:07 PM Referred By: Confirmed By:ASIA MCCALL MD
[2017-07-24] MEDS: THIAMINE HCL 100 MG TABLET (FP) PO SCH (22:55)
[2017-07-25] MEDS: chlordiazePOXIDE HCL 25 MG CAPSULE PO SCH ×2 (05:25→10:36)
[2017-07-25] MEDS: NICOTINE 14 MG/24 HOURS TOPICAL PATCH TD SCH (10:37)
[2017-07-25] MEDS: PRENATAL VITAMINS W/ FOLIC ACID TABLET (FP) PO SCH (10:38)
--- NOTE | 2017-07-25 11:45 | PN ---
S CIWA - CIWA Score Nausea/Vomitin Muscle Tremors: 3 Anxiety: 3 Agitation: 3 Paroxysmal Sweats: 1-Minimal Palms Moist Orientation: 0-Oriented Tacttile Disturbances: 1-Very Mild Itch/Numbness Auditory Disturbances: 1-Very Mild Visual Disturbances: 0-None Headache: 2-Mild CIWA-Ar Total Score: 17 BHS Progress Note (SOAP) Subjective: alert,irritable,anxious,interrupted sleep,tremor Objective: 07/25/17 11:43 Vital Signs Temperature 96.8 F L 07/25/17 10:00 Pulse Rate 100 H 07/25/17 10:00 Respiratory Rate 16 07/25/17 10:00 Blood Pressure 116/77 07/25/17 10:00 O2 Sat by Pulse Oximetry (%) Laboratory Last Values WBC 5.2 K/mm3 (4.0-10.0) 07/23/17 14:15 RBC 4.71 M/mm3 (4.00-5.60) 07/23/17 14:15 Hgb 14.1 GM/dL (11.7-16.9) 07/23/17 14:15 Hct 41.3 % (35.4-49) 07/23/17 14:15 MCV 87.6 fl (80-96) 07/23/17 14:15 MCH 30.0 pg (25.7-33.7) 07/23/17 14:15 MCHC 34.2 g/dl (32.0-35.9) 07/23/17 14:15 RDW 14.5 % (11.9-15.9) 07/23/17 14:15 Plt Count 280 K/MM3 (134-434) 07/23/17 14:15 MPV 8.4 fl (7.5-11.1) 07/23/17 14:15 Sodium 139 mmol/L (136-145) 07/23/17 14:15 Potassium 4.1 mmol/L (3.5-5.1) 07/23/17 14:15 Chloride 101 mmol/L (98-107) 07/23/17 14:15 Carbon Dioxide 28 mmol/L (21-32) 07/23/17 14:15 Anion Gap 10 (8-16) 07/23/17 14:15 BUN 15 mg/dL (7-18) 07/23/17 14:15 Creatinine 0.9 mg/dL (0.7-1.3) 07/23/17 14:15 Creat Clearance w eGFR > 60 (>60) 07/23/17 14:15 Random Glucose 100 mg/dL (74-106) D 07/23/17 14:15 Calcium 8.9 mg/dL (8.5-10.1) 07/23/17 14:15 Total Bilirubin 0.9 mg/dL (0.2-1.0) D 07/23/17 14:15 AST 40 U/L (15-37) H D 07/23/17 14:15 ALT 67 U/L (12-78) D 07/23/17 14:15 Alkaline Phosphatase 88 U/L (45-117) 07/23/17 14:15 Total Protein 7.6 g/dl (6.4-8.2) 07/23/17 14:15 Albumin 4.0 g/dl (3.4-5.0) 07/23/17 14:15 Urine Color Ana 07/23/17 15:30 Urine Appearance Slcloudy 07/23/17 15:30 Urine pH 6.0 (5.0-8.0) 07/23/17 15:30 Ur Specific [place] 1.020 (1.005-1.025) 07/23/17 15:30 Urine Protein 2+ (NEGATIVE) H 07/23/17 15:30 Urine Glucose (UA) Negative (NEGATIVE) 07/23/17 15:30 Urine Ketones Negative (NEGATIVE) 07/23/17 15:30 Urine Blood Negative (NEGATIVE) 07/23/17 15:30 Urine Nitrite Negative (NEGATIVE) 07/23/17 15:30 Urine Bilirubin Negative (NEGATIVE) 07/23/17 15:30 Urine Urobilinogen 4.0 e.u/dl mg/dL (0.2-1.0) 07/23/17 15:30 Ur Leukocyte Esterase Negative (NEGATIVE) 07/23/17 15:30 Urine RBC 1 /hpf (0-3) 07/23/17 15:30 Urine WBC 11 /hpf (3-5) 07/23/17 15:30 Ur Epithelial Cells Rare /hpf (FEW) 07/23/17 15:30 Urine Mucus Rare 07/23/17 15:30 RPR Titer Reactive 1:2 (NONREACTIVE) H D 07/23/17 14:15 T.pallidum Ab (MHA) Previously reactive (NONREACTIVE) 07/23/17 14:15 previous treated for syphilis Assessment: 07/25/17 11:44 withdrawal symptom Plan: continue detox
[2017-07-25] MEDS: chlordiazePOXIDE 5 MG CAPSULE PO SCH ×2 (17:49→22:39)
[2017-07-25] MEDS: diphenhydrAMINE HCL 50 MG CAPSULE PO PRN (22:39)
[2017-07-25] MEDS: THIAMINE HCL 100 MG TABLET (FP) PO SCH (22:39)
[2017-07-26] MEDS: chlordiazePOXIDE 5 MG CAPSULE PO SCH ×2 (06:10→10:50)
--- NOTE | 2017-07-26 10:44 | PN ---
BHS Progress Note (SOAP) Subjective: alert,irritable.anxious,interrupted sleep Objective: 07/26/17 10:43 Vital Signs Temperature 96.5 F L 07/26/17 09:58 Pulse Rate 80 07/26/17 09:58 Respiratory Rate 18 07/26/17 09:58 Blood Pressure 136/88 07/26/17 09:58 O2 Sat by Pulse Oximetry (%) Assessment: 07/26/17 10:43 withdrawal symptom Plan: continue detox,discharge in am
[2017-07-26] MEDS: PRENATAL VITAMINS W/ FOLIC ACID TABLET (FP) PO SCH (10:50)
[2017-07-26] MEDS: NICOTINE 14 MG/24 HOURS TOPICAL PATCH TD SCH (10:50)
[2017-07-26] MEDS: chlordiazePOXIDE HCL 10 MG CAPSULE PO SCH ×2 (17:40→22:08)
[2017-07-26] MEDS: THIAMINE HCL 100 MG TABLET (FP) PO SCH (22:08)
[2017-07-26] MEDS: diphenhydrAMINE HCL 50 MG CAPSULE PO PRN (22:08)
[2017-07-27] MEDS: chlordiazePOXIDE HCL 10 MG CAPSULE PO SCH (05:56)
--- NOTE | 2017-07-27 08:47 | DS ---
[facility] Detox Discharge Summary Admission Date: 07/23/17 Discharge Date: 07/27/17 - History Present History: Alcohol Dependence, Cocaine Dependence, Sedative Dependence Additional Comments: FOLLOW UP WITH AFTER CARE PROGRAM ARRANGEMENT Pertinent Past History: NICOTINE DEPENDENCE - Physical Exam Results Vital Signs: Vital Signs Temperature 97.5 F L 07/27/17 06:00 Pulse Rate 71 07/27/17 06:00 Respiratory Rate 18 07/27/17 06:00 Blood Pressure 101/63 07/27/17 06:00 O2 Sat by Pulse Oximetry (%) Pertinent Admission Physical Exam Findings: WITHDRAWAL SYMPTOM - Treatment Hospital Course: Detox Protocol Followed, Detoxed Safely, Responded well, Discharged Condition Good, Rehab Referral Accepted Patient has Accepted a Rehab Referral to: [facility] - Medication Discharge Medications: Ambulatory Orders NK [No Known Home Medication] 08/06/16 - Diagnosis (1) Alcohol dependence with uncomplicated withdrawal Current Visit: Yes Status: Acute (2) Sedative, hypnotic or anxiolytic dependence with withdrawal, uncomplicated Current Visit: Yes Status: Acute (3) Nicotine dependence Current Visit: Yes Status: Chronic Qualifiers: Nicotine product type: cigarettes Substance use status: in withdrawal Qualified Code(s): F17.213 - Nicotine dependence, cigarettes, with withdrawal; F17.213 - Nicotine dependence, cigarettes, with withdrawal (4) Syncope Current Visit: No Status: Acute (5) Weight loss Current Visit: No Status: Acute - AMA Did Patient Leave Against Medical Advice: No
[2017-07-27] MEDS: PRENATAL VITAMINS W/ FOLIC ACID TABLET (FP) PO SCH (10:38)
[2017-07-27] MEDS: NICOTINE 14 MG/24 HOURS TOPICAL PATCH TD SCH (10:40)
[2017-07-27 10:48] VITALS: BP 116/81; PULSE 84; TEMP 97.7
== END 2017-07-27 11:25 | disposition home or self-care (01) | DRG 775 ==
LOC: YASAS 08:26 → Y6N 13:57
PROVIDERS: ADMIT Internal Medicine; ATTEND Internal Medicine
PROC: HZ2ZZZZ Detoxification Services for Substance Abuse Treatment (ICD-10-PCS; principal; 2017-07-23)
DX: F13.230 Sedative, hypnotic or anxiolytic dependence with withdrawal, uncomplicated (principal); F10.230 Alcohol dependence with withdrawal, uncomplicated; F17.213 Nicotine dependence, cigarettes, with withdrawal; Z91.013 Allergy to seafood; Z86.79 Personal history of other diseases of the circulatory system; Z87.898 Personal history of other specified conditions; Z87.438 Personal history of other diseases of male genital organs
CPT/HCPCS: 36415; 80053; 81003; 81015; 85027; 86593; 86780; 93005; 93010

== ENCOUNTER 2019-11-18 11:51 | Inpatient (IN) | payer OTHER ==
--- NOTE | 2019-11-18 12:30 | BHS.RME ---
Substance Use & Tx History - Substance Use History Alcohol Substance amount: 1-2 pints bacardi and 3 6 packs Frequency of use: Daily Substance route: Oral Date of Last Use: 11/18/19 (1 am) Cocaine (Crack) Substance amount: $80-100 Frequency of use: Daily Date of Last Use: 11/25/19 (1 am) Benzodiazepines Substance amount: Xanax 2 mg 2-3 pills Frequency of use: Daily Substance route: Oral Date of Last Use: 11/18/19 (1 am) - Last Treatment Date of last treatment: 7 months ago at [facility] Treatment type: Substance Use Disorder ([facility]) Where was last treatment: Detox Physical/Psych/Mental Status - Behavior General Behavior: Decreased activity Eye Contact: Decreased - Cooperativeness Cooperativeness: Cooperative - Thinking Thought Processes: Tight, Logical, Goal Directed - Physical Health Problems Is patient presently having any pain?: No Does patient presently have any injuries (include location): No Does patient currently have a fever: No Is patient : No CIWA Nausea/Vomitin Muscle Tremors: 4-Moderate,w/Arms Extend Anxiety: 3 Agitation: 2 Paroxysmal Sweats: 1-Minimal Palms Moist Orientation: 1-Uncertain about Date Tacttile Disturbances: 3-Moderate Itch/Numb/Burn Auditory Disturbances: 0-None Visual Disturbances: 0-None Headache: 0-None Present CIWA-Ar Total Score: 17
[2019-11-18 13:49] VITALS: BMI 27.6
--- NOTE | 2019-11-18 14:07 | HP ---
CIWA Score Nausea/Vomitin Muscle Tremors: 4-Moderate,w/Arms Extend Anxiety: 3 Agitation: 2 Paroxysmal Sweats: 1-Minimal Palms Moist Orientation: 1-Uncertain about Date Tacttile Disturbances: 3-Moderate Itch/Numb/Burn Auditory Disturbances: 0-None Visual Disturbances: 0-None Headache: 0-None Present CIWA-Ar Total Score: 17 - Admission Criteria [facility] Guidelines: Admission for Medically Managed Detox: Requires at least one of the followin. CIWA greater than 12 2. Seizures within the past 24 hours 3. Delirium tremens within the past 24 hours 4. Hallucinations within the past 24 hours 5. Acute intervention needed for co occurring medical disorder 6. Acute intervention needed for co occurring psychiatric disorder 7. Severe withdrawal that cannot be handled at a lower level of care (continued vomiting, continued diarrhea, abnormal vital signs) requiring intravenous medication and/or fluids 8. Admitting History and Physical - Admission Chief Complaint: Mr. Reynaga presents to [facility] stating " I feel like I was going to pass out from using alcohol, crack and Xanax". He is requesting a detox admission. History of Present Illness: Mr. Reynaga presents to [facility] stating " I feel like I was going to pass out from using alcohol, crack and Xanax". He is requesting a detox admission. He was last seen at [facility] in 2018. PMH: none PSH: none Psych: none Substance use history Alcohol: first use at the age of 25 y, last use today, 1-2 pints Rum, 3 6 packs of 16 ounce beers daily. Hx of black out a couple of weeks ago. No withdrawal seizure Crack: first use at the age of 18y, last use today, $80-100 per day Xanax: 2mg tabs, 2-3 per day, last use today, first use 2 y ago Nicotine: 3-5 per day History Source: Patient Limitations to Obtaining History: No Limitations - Past Surgical History Past Surgical History: Yes: None - Smoking History Smoking history: Current every day smoker Have you smoked in the past 12 months: Yes Aproximately how many cigarettes per day: 3 - Alcohol/Substance Use Hx Alcohol Use: Yes Admission ROS [facility] - [facility] Allergies/Adverse Reactions: Allergies Allergy/AdvReac Type Severity Reaction Status Date / Time No Known Drug Allergies Allergy Verified 11/18/19 13:45 tuna Allergy Severe Swelling Uncoded 11/18/19 13:45 Exam Limitations: No Limitations - Ebola screening Have you traveled outside of the country in the last 21 days: No Have you had contact with anyone from an Ebola affected area: No Have you been sick,other than usual withdrawal symptoms: No Do you have a fever: No - Review of Systems Constitutional: No Symptoms Reported EENT: reports: No Symptoms Reported Respiratory: reports: No Symptoms reported Cardiac: reports: No Symptoms Reported GI: reports: No Symptoms Reported : reports: No Symptoms Reported Musculoskeletal: reports: No Symptoms Reported Integumentary: reports: Pruritus Neuro: reports: Tremors Endocrine: reports: No Symptoms Reported Hematology: reports: No Symptoms Reported Psychiatric: reports: Anxious Patient History - Patient Medical History Hx Anemia: No Hx Asthma: No Hx Chronic Obstructive Pulmonary Disease (COPD): No Hx Cancer: No Hx Cardiac Disorders: No Hx Congestive Heart Failure: No Hx Hypertension: No Hx Hypercholesterolemia: No Hx Pacemaker: No HX Cerebrovascular Accident: No Hx Seizures: No Hx Dementia: No Hx Diabetes: No Hx Gastrointestinal Disorders: No Hx Liver Disease: No Hx Genitourinary Disorders: No Hx Sexually Transmitted Disorders: No Hx Renal Disease (ESRD): No Hx Thyroid Disease: No Hx Human Immunodeficiency Virus (HIV): No (NEGATIVE HX last 09/16 negative) Hx Hepatitis C: No (negative) Hx Depression: No Hx Suicide Attempt: No Hx Bipolar Disorder: No Hx Schizophrenia: No - Patient Surgical History Past Surgical History: No Hx Neurologic Surgery: No Hx Cataract Extraction: No Hx Cardiac Surgery: No Hx Lung Surgery: No Hx Breast Surgery: No Hx Breast Biopsy: No Hx Abdominal Surgery: No Hx Appendectomy: No Hx Cholecystectomy: No Hx Genitourinary Surgery: No Hx Section: No Hx Orthopedic Surgery: No Hx Hysterectomy: No Anesthesia Reaction: No - PPD History Previous Implant?: Yes Documented Results: Negative w/proof Implanted On Prior R Admission?: Yes Date: 07/25/17 Results: 0 mm - Smoking Cessation Smoking history: Current every day smoker Have you smoked in the past 12 months: Yes Aproximately how many cigarettes per day: 3 Cigars Per Day: 0 Hx Chewing Tobacco Use: No Initiated information on smoking cessation: Yes 'Breaking Loose' booklet given: 11/18/19 - Substances abused Non-Rx Methadone Substance route: Oral Frequency: Daily Amount used: vodka- 1.5pt. Beers-18 16OZ Cans Age of first use: 25 Date of last use: 11/18/19 [id number] Other (specify): 2mg Substance route: Oral Frequency: Daily Amount used: 2-3 tabs Age of first use: 46 Date of last use: 11/18/19 Methamphetamine Substance route: Smoking Frequency: Daily Amount used: $80 Age of first use: 18 Date of last use: 11/18/19 Admission Physical Exam [facility] - Vital Signs Vital Signs: Vital Signs - 24 hr 11/18/19 13:46 Temperature 97.6 F Pulse Rate 89 Respiratory 18 Rate Blood Pressure 119/77 - Physical General Appearance: Yes: Within Normal Limits HEENTM: Yes: EOMI, Hearing grossly Normal, Normocephalic Respiratory: Yes: Lungs Clear, Normal Breath Sounds Neck: Yes: Within Normal Limits Breast: Yes: Breast Exam Deferred Cardiology: Yes: Regular Rate, S1, S2 Abdominal: Yes: Normal Bowel Sounds, Non Tender, Flat, Soft, Hernia Genitourinary: Yes: Other (deferred) Back: Yes: Normal Inspection Musculoskeletal: Yes: Within Normal Limits Extremities: Yes: Within Normal Limits Neurological: Yes: Alert Integumentary: Yes: Within Normal Limits Lymphatic: Yes: Within Normal Limits - Diagnostic (1) Alcohol dependence with uncomplicated withdrawal Current Visit: No Status: Acute (2) Cocaine dependence Current Visit: No Status: Acute Qualifiers: Substance use status: uncomplicated Qualified Code(s): F14.20 - Cocaine dependence, uncomplicated (3) Sedative, hypnotic or anxiolytic dependence with withdrawal, uncomplicated Current Visit: No Status: Acute Comment: STARTED USING "XANAX THIS YEAR" (4) Nicotine dependence Current Visit: No Status: Chronic Qualifiers: Nicotine product type: cigarettes Substance use status: in withdrawal Qualified Code(s): F17.213 - Nicotine dependence, cigarettes, with withdrawal Cleared for Admission [facility] - Detox or Rehab [facility] Level of Care: Medically Managed Breathalyzer - Breathalyzer Breathalyzer: 0 Urine Drug Screen - Test Device Lot number: [id number] Expiration date: 08/30/21 - Control Is test valid?: Yes - Results Drug screen NEGATIVE: No Urine drug screen results: JOE-Cocaine, BZO-Benzodiazepines Inpatient Rehab Admission - Rehab Decision to Admit Inpatient rehab admission?: No
[2019-11-18] MEDS ORDERED: BISMUTH SUBSALICYLATE 262 MG/15 ML BTL PO PRN (14:10)
[2019-11-18] MEDS ORDERED: hydrOXYzine PAMOATE 25 MG CAPSULE (FP) PO PRN (14:10)
[2019-11-18] MEDS ORDERED: ACETAMINOPHEN 325 MG TABLET (FP) PO PRN ×2 (14:10)
[2019-11-18] MEDS ORDERED: MAG HYDROX/AL HYDROX/SIMETH 30 ML UNIT-DOSE CUP PO PRN (14:10)
[2019-11-18] MEDS ORDERED: MAGNESIUM CITRATE 300 ML BOTTLE PO PRN (14:10)
[2019-11-18] MEDS ORDERED: METHOCARBAMOL 500 MG TABLET PO PRN (14:10)
[2019-11-18] MEDS ORDERED: chlordiazePOXIDE HCL 25 MG CAPSULE PO PRN (14:10)
[2019-11-18] MEDS ORDERED: MAGNESIUM HYDROX 2400MG/30ML ORAL SUSPENSION 30 ML CUP PO PRN (14:10)
[2019-11-18] MEDS ORDERED: IBUPROFEN 400 MG TABLET (FP) PO PRN (14:10)
[2019-11-18] MEDS ORDERED: MENTHOL/PHENOL 1 EACH UD MM PRN (14:10)
[2019-11-18] MEDS: NICOTINE 14 MG/24 HOURS TOPICAL PATCH TD SCH (15:01)
[2019-11-18 17:39] LABS: ALBUMIN 3.9 g/dl (3.4-5.0); BILIRUBIN,TOTAL 0.5 mg/dL (0.2-1); BLOOD UREA NITROGEN 19.1 mg/dL (7-18); CALCIUM 9.1 mg/dL (8.5-10.1); POTASSIUM 3.7 mmol/L (3.5-5.1); TOT PROT 7.6 g/dl (6.4-8.2)
[2019-11-18 17:41] LABS: HEMATOCRIT 41.4 % (35.4-49); HEMOGLOBIN 13.8 GM/dL (11.7-16.9); MCH 29.8 pg (25.7-33.7); MCHC 33.4 g/dl (32.0-35.9); MEAN CELL VOLUME 89.2 fl (80-96); MEAN PLT VOLUME 8.2 fl (7.5-11.1); PLATELET COUNT 317 K/MM3 (134-434); RBC 4.64 M/mm3 (4.00-5.60); RDW 14.3 % (11.9-15.9); WHITE BLOOD COUNT 4.7 K/mm3 (4.0-10.0)
[2019-11-18] MEDS: chlordiazePOXIDE HCL 25 MG CAPSULE PO SCH ×2 (18:05→22:48)
[2019-11-18] MEDS: THIAMINE HCL 100 MG TABLET (FP) PO SCH (22:47)
[2019-11-18] MEDS: MELATONIN 5 MG TABLETS PO PRN (22:49)
[2019-11-19] MEDS: chlordiazePOXIDE HCL 25 MG CAPSULE PO SCH ×4 (05:11→22:33)
[2019-11-19] MEDS: PRENATAL VITAMINS W/ FOLIC ACID TABLET (FP) PO SCH (10:25)
[2019-11-19] MEDS: NICOTINE 14 MG/24 HOURS TOPICAL PATCH TD SCH (10:26)
[2019-11-19 11:11] LABS: RPR REACTIVE 1:1 (NONREACTIVE); TREPONEMA ANTIBODY PREVIOUSLY REACTIVE (NONREACTIVE)
--- NOTE | 2019-11-19 15:41 | PN ---
S CIWA - CIWA Score Nausea/Vomitin-No Nausea/No Vomiting Muscle Tremors: 4-Moderate,w/Arms Extend Anxiety: 3 Agitation: 0-Normal Activity Paroxysmal Sweats: 2 Orientation: 0-Oriented Tacttile Disturbances: 0-None Auditory Disturbances: 0-None Visual Disturbances: 1-Very Mild Sensitivity Headache: 2-Mild CIWA-Ar Total Score: 12 BHS Progress Note (SOAP) Subjective: 48 years old male admitted on 11/18/19 for alcohol and benzo withdrawal sx management treating with librium detox regiment feelin ok today trouble sleeping last night restlessness Objective: 11/19/19 15:40 Vital Signs Temperature 96.9 F L 11/19/19 12:58 Pulse Rate 81 11/19/19 12:58 Respiratory Rate 18 11/19/19 12:58 Blood Pressure 121/82 11/19/19 12:58 O2 Sat by Pulse Oximetry (%) Laboratory Last Values WBC 4.7 K/mm3 (4.0-10.0) 11/18/19 14:00 RBC 4.64 M/mm3 (4.00-5.60) 11/18/19 14:00 Hgb 13.8 GM/dL (11.7-16.9) 11/18/19 14:00 Hct 41.4 % (35.4-49) 11/18/19 14:00 MCV 89.2 fl (80-96) 11/18/19 14:00 MCH 29.8 pg (25.7-33.7) 11/18/19 14:00 MCHC 33.4 g/dl (32.0-35.9) 11/18/19 14:00 RDW 14.3 % (11.9-15.9) 11/18/19 14:00 Plt Count 317 K/MM3 (134-434) 11/18/19 14:00 MPV 8.2 fl (7.5-11.1) 11/18/19 14:00 Sodium 137 mmol/L (136-145) 11/18/19 14:00 Potassium 3.7 mmol/L (3.5-5.1) 11/18/19 14:00 Chloride 102 mmol/L (98-107) 11/18/19 14:00 Carbon Dioxide 31 mmol/L (21-32) 11/18/19 14:00 Anion Gap 4 MMOL/L (8-16) L 11/18/19 14:00 BUN 19.1 mg/dL (7-18) H 11/18/19 14:00 Creatinine 1.0 mg/dL (0.55-1.3) 11/18/19 14:00 Est GFR (CKD-EPI)AfAm 101.26 11/18/19 14:00 Est GFR (CKD-EPI)NonAf 87.37 11/18/19 14:00 Random Glucose 110 mg/dL (74-106) H 11/18/19 14:00 Calcium 9.1 mg/dL (8.5-10.1) 11/18/19 14:00 Total Bilirubin 0.5 mg/dL (0.2-1) 11/18/19 14:00 AST 29 U/L (15-37) 11/18/19 14:00 ALT 51 U/L (13-61) 11/18/19 14:00 Alkaline Phosphatase 101 U/L (45-117) 11/18/19 14:00 Total Protein 7.6 g/dl (6.4-8.2) 11/18/19 14:00 Albumin 3.9 g/dl (3.4-5.0) 11/18/19 14:00 RPR Titer Reactive 1:1 (NONREACTIVE) H 11/18/19 14:00 T.pallidum Ab (MHA) Previously reactive (NONREACTIVE) 11/18/19 14:00 lab noted history of rpr positive treated with penicilline Assessment: 11/19/19 15:40 alcohol and benzo withdrawal Plan: librium regiment
[2019-11-19] MEDS: MELATONIN 5 MG TABLETS PO PRN (22:33)
[2019-11-19] MEDS: THIAMINE HCL 100 MG TABLET (FP) PO SCH (22:33)
[2019-11-20] MEDS: chlordiazePOXIDE HCL 25 MG CAPSULE PO SCH ×4 (05:37→22:20)
[2019-11-20] MEDS: PRENATAL VITAMINS W/ FOLIC ACID TABLET (FP) PO SCH (10:10)
[2019-11-20] MEDS: NICOTINE 14 MG/24 HOURS TOPICAL PATCH TD SCH (10:10)
--- NOTE | 2019-11-20 12:14 | PN ---
[facility] CIWA - CIWA Score Nausea/Vomitin-No Nausea/No Vomiting Muscle Tremors: 2 Anxiety: 2 Agitation: 0-Normal Activity Paroxysmal Sweats: 2 Orientation: 0-Oriented Tacttile Disturbances: 1-Very Mild Itch/Numbness Auditory Disturbances: 0-None Visual Disturbances: 1-Very Mild Sensitivity Headache: 2-Mild CIWA-Ar Total Score: 10 S Progress Note (SOAP) Subjective: 48 years old male admitted on 11/18/19 for alcohol and benzo withdrawal sx management treating with librium detox regiment feeling ok today encourage the patient to attend behavior and psychosocial therapies groups and meetings while in detox Objective: 11/20/19 12:14 Vital Signs Temperature 97 F L 11/20/19 08:55 Pulse Rate 83 11/20/19 08:55 Respiratory Rate 18 11/20/19 08:55 Blood Pressure 125/79 11/20/19 08:55 O2 Sat by Pulse Oximetry (%) Laboratory Last Values WBC 4.7 K/mm3 (4.0-10.0) 11/18/19 14:00 RBC 4.64 M/mm3 (4.00-5.60) 11/18/19 14:00 Hgb 13.8 GM/dL (11.7-16.9) 11/18/19 14:00 Hct 41.4 % (35.4-49) 11/18/19 14:00 MCV 89.2 fl (80-96) 11/18/19 14:00 MCH 29.8 pg (25.7-33.7) 11/18/19 14:00 MCHC 33.4 g/dl (32.0-35.9) 11/18/19 14:00 RDW 14.3 % (11.9-15.9) 11/18/19 14:00 Plt Count 317 K/MM3 (134-434) 11/18/19 14:00 MPV 8.2 fl (7.5-11.1) 11/18/19 14:00 Sodium 137 mmol/L (136-145) 11/18/19 14:00 Potassium 3.7 mmol/L (3.5-5.1) 11/18/19 14:00 Chloride 102 mmol/L (98-107) 11/18/19 14:00 Carbon Dioxide 31 mmol/L (21-32) 11/18/19 14:00 Anion Gap 4 MMOL/L (8-16) L 11/18/19 14:00 BUN 19.1 mg/dL (7-18) H 11/18/19 14:00 Creatinine 1.0 mg/dL (0.55-1.3) 11/18/19 14:00 Est GFR (CKD-EPI)AfAm 101.26 11/18/19 14:00 Est GFR (CKD-EPI)NonAf 87.37 11/18/19 14:00 Random Glucose 110 mg/dL (74-106) H 11/18/19 14:00 Calcium 9.1 mg/dL (8.5-10.1) 11/18/19 14:00 Total Bilirubin 0.5 mg/dL (0.2-1) 11/18/19 14:00 AST 29 U/L (15-37) 11/18/19 14:00 ALT 51 U/L (13-61) 11/18/19 14:00 Alkaline Phosphatase 101 U/L (45-117) 11/18/19 14:00 Total Protein 7.6 g/dl (6.4-8.2) 11/18/19 14:00 Albumin 3.9 g/dl (3.4-5.0) 11/18/19 14:00 RPR Titer Reactive 1:1 (NONREACTIVE) H 11/18/19 14:00 T.pallidum Ab (MHA) Previously reactive (NONREACTIVE) 11/18/19 14:00 lab noted Assessment: 11/20/19 12:15 alcohol and benzo withdrawal Plan: librium regiment
[2019-11-20] MEDS: THIAMINE HCL 100 MG TABLET (FP) PO SCH (22:20)
[2019-11-20] MEDS: MELATONIN 5 MG TABLETS PO PRN (22:20)
[2019-11-21] MEDS ORDERED: chlordiazePOXIDE HCL 10 MG CAPSULE PO PRN
[2019-11-21] MEDS: chlordiazePOXIDE HCL 10 MG CAPSULE PO SCH ×4 (07:09→22:47)
[2019-11-21] MEDS: NICOTINE 14 MG/24 HOURS TOPICAL PATCH TD SCH (10:19)
[2019-11-21] MEDS: PRENATAL VITAMINS W/ FOLIC ACID TABLET (FP) PO SCH (10:19)
--- NOTE | 2019-11-21 12:14 | PN ---
S CIWA - CIWA Score Nausea/Vomitin-No Nausea/No Vomiting Muscle Tremors: None Anxiety: 0-No Anxiety, at Ease Agitation: 0-Normal Activity Paroxysmal Sweats: No Perspiration Orientation: 2-Disoriented Date<2 days Tacttile Disturbances: 0-None Auditory Disturbances: 0-None Visual Disturbances: 1-Very Mild Sensitivity Headache: 0-None Present CIWA-Ar Total Score: 3 BHS Progress Note (SOAP) Subjective: Complaints of fatigue, plans for Sunday discharge to [facility] Objective: 11/21/19 12:12 Laboratory Tests 11/18/19 11/18/19 11/18/19 14:00 14:00 14:00 WBC 4.7 RBC 4.64 Hgb 13.8 Hct 41.4 MCV 89.2 MCH 29.8 MCHC 33.4 RDW 14.3 Plt Count 317 MPV 8.2 Sodium 137 Potassium 3.7 Chloride 102 Carbon Dioxide 31 Anion Gap 4 L BUN 19.1 H Creatinine 1.0 Est GFR (CKD-EPI)AfAm 101.26 Est GFR (CKD-EPI)NonAf 87.37 Random Glucose 110 H Calcium 9.1 Total Bilirubin 0.5 AST 29 ALT 51 Alkaline Phosphatase 101 Total Protein 7.6 Albumin 3.9 RPR Titer Reactive 1:1 H T.pallidum Ab (MHA) Previously reactive 11/21/19 12:13 Vital Signs - 24 hr 11/20/19 11/20/19 11/20/19 12:50 17:39 20:51 Temperature 98.6 F 98.4 F 98.3 F Pulse Rate 78 80 87 Respiratory 18 18 16 Rate Blood Pressure 137/83 110/74 105/74 11/21/19 11/21/19 11/21/19 00:46 03:30 05:50 Temperature 97.7 F Pulse Rate 68 Respiratory 18 18 18 Rate Blood Pressure 108/67 11/21/19 08:38 Temperature 96.7 F L Pulse Rate 78 Respiratory 16 Rate Blood Pressure 100/56 L PE Gnl: WDWN, in no distress Mental status: awake, alert, nl mentation Motor: nl motion of limbs Assessment: 11/21/19 12:14 1. Alcohol use disorder 2. Nicotine use disorder Plan: 1. Librium withdrawal protocol 2. Nicotine patch 3. [facility]
[2019-11-21] MEDS: THIAMINE HCL 100 MG TABLET (FP) PO SCH (22:46)
[2019-11-21] MEDS: MELATONIN 5 MG TABLETS PO PRN (22:47)
[2019-11-22] MEDS ORDERED: chlordiazePOXIDE HCL 10 MG CAPSULE PO SCH (05:00)
[2019-11-22 07:46] VITALS: BP 91/55; PULSE 67; TEMP 97.4
--- NOTE | 2019-11-22 12:27 | DS ---
[facility] Detox Discharge Summary Admission Date: 11/18/19 Discharge Date: 11/22/19 - History Present History: Opioid Dependence, Sedative Dependence Additional Comments: As per H&P: "presents to [facility] stating " I feel like I was going to pass out from using alcohol, crack and Xanax". He is requesting a detox admission". Pt is medically cleared and is discharged today. Pt completed the detox protocol. Pt is encouraged to follow-up with an outpatient CD program and also to follow-up with his pmd. Pt verbalized understanding. Pt is alert and oriented x3 and in no acute respiratory distress. Pertinent Past History: h/o opioid and benzo use disorder - Physical Exam Results Vital Signs: Vital Signs Temperature 97.4 F L 11/22/19 07:45 Pulse Rate 67 11/22/19 07:45 Respiratory Rate 16 11/22/19 07:45 Blood Pressure 91/55 L 11/22/19 07:45 O2 Sat by Pulse Oximetry (%) Laboratory Last Values WBC 4.7 K/mm3 (4.0-10.0) 11/18/19 14:00 RBC 4.64 M/mm3 (4.00-5.60) 11/18/19 14:00 Hgb 13.8 GM/dL (11.7-16.9) 11/18/19 14:00 Hct 41.4 % (35.4-49) 11/18/19 14:00 MCV 89.2 fl (80-96) 11/18/19 14:00 MCH 29.8 pg (25.7-33.7) 11/18/19 14:00 MCHC 33.4 g/dl (32.0-35.9) 11/18/19 14:00 RDW 14.3 % (11.9-15.9) 11/18/19 14:00 Plt Count 317 K/MM3 (134-434) 11/18/19 14:00 MPV 8.2 fl (7.5-11.1) 11/18/19 14:00 Sodium 137 mmol/L (136-145) 11/18/19 14:00 Potassium 3.7 mmol/L (3.5-5.1) 11/18/19 14:00 Chloride 102 mmol/L (98-107) 11/18/19 14:00 Carbon Dioxide 31 mmol/L (21-32) 11/18/19 14:00 Anion Gap 4 MMOL/L (8-16) L 11/18/19 14:00 BUN 19.1 mg/dL (7-18) H 11/18/19 14:00 Creatinine 1.0 mg/dL (0.55-1.3) 11/18/19 14:00 Est GFR (CKD-EPI)AfAm 101.26 11/18/19 14:00 Est GFR (CKD-EPI)NonAf 87.37 11/18/19 14:00 Random Glucose 110 mg/dL (74-106) H 11/18/19 14:00 Calcium 9.1 mg/dL (8.5-10.1) 11/18/19 14:00 Total Bilirubin 0.5 mg/dL (0.2-1) 11/18/19 14:00 AST 29 U/L (15-37) 11/18/19 14:00 ALT 51 U/L (13-61) 11/18/19 14:00 Alkaline Phosphatase 101 U/L (45-117) 11/18/19 14:00 Total Protein 7.6 g/dl (6.4-8.2) 11/18/19 14:00 Albumin 3.9 g/dl (3.4-5.0) 11/18/19 14:00 RPR Titer Reactive 1:1 (NONREACTIVE) H 11/18/19 14:00 T.pallidum Ab (MHA) Previously reactive (NONREACTIVE) 11/18/19 14:00 Vital Signs 11/22/19 07:45 Temperature 97.4 F L Pulse Rate 67 Respiratory 16 Rate Blood Pressure 91/55 L Labs noted. Pertinent Admission Physical Exam Findings: withdrawal symptoms. - Treatment Hospital Course: Detox Protocol Followed, Detoxed Safely, Responded well, Discharged Condition Good - Medication Discharge Medications: Ambulatory Orders NK [No Known Home Medication] 08/06/16 - Diagnosis (1) Alcohol dependence with uncomplicated withdrawal Status: Acute (2) Cocaine dependence Status: Acute Qualifiers: Substance use status: uncomplicated Qualified Code(s): F14.20 - Cocaine dependence, uncomplicated (3) Sedative, hypnotic or anxiolytic dependence with withdrawal, uncomplicated Status: Acute (4) Nicotine dependence Status: Chronic Qualifiers: Nicotine product type: cigarettes Substance use status: in withdrawal Qualified Code(s): F17.213 - Nicotine dependence, cigarettes, with withdrawal - AMA Did Patient Leave Against Medical Advice: No
[2019-11-23] MEDS ORDERED: chlordiazePOXIDE HCL 10 MG CAPSULE PO ONE (05:00)
== END 2019-11-22 08:53 | disposition other institution (70) | DRG 774 ==
LOC: YASAS 11:51 → Y3N 14:28
PROVIDERS: ADMIT Allergy & Immunology; ATTEND Allergy & Immunology
PROC: HZ2ZZZZ Detoxification Services for Substance Abuse Treatment (ICD-10-PCS; principal; 2019-11-18)
DX: F10.230 Alcohol dependence with withdrawal, uncomplicated (principal); F13.230 Sedative, hypnotic or anxiolytic dependence with withdrawal, uncomplicated; F14.20 Cocaine dependence, uncomplicated; F15.20 Other stimulant dependence, uncomplicated; F17.213 Nicotine dependence, cigarettes, with withdrawal; Z86.19 Personal history of other infectious and parasitic diseases; Z91.013 Allergy to seafood
CPT/HCPCS: 36415; 80053; 85027; 86593; 86780

== ENCOUNTER 2020-10-23 09:47 | Inpatient (IN) | payer OTHER ==
[2020-10-23 10:16] VITALS: BMI 27.8
[2020-10-23] MEDS ORDERED: MAGNESIUM CITRATE 300 ML BOTTLE PO PRN (10:36)
[2020-10-23] MEDS ORDERED: METHOCARBAMOL 500 MG TABLET PO PRN (10:36)
[2020-10-23] MEDS ORDERED: NICOTINE POLACRILEX 2 MG GUM BUC PRN (10:36)
[2020-10-23] MEDS ORDERED: chlordiazePOXIDE HCL 25 MG CAPSULE PO ONE (10:36)
[2020-10-23] MEDS ORDERED: chlordiazePOXIDE HCL 25 MG CAPSULE PO PRN (10:36)
[2020-10-23] MEDS ORDERED: hydrOXYzine PAMOATE 25 MG CAPSULE (FP) PO PRN (10:36)
[2020-10-23] MEDS ORDERED: MENTHOL/PHENOL 1 EACH UD MM PRN (10:36)
[2020-10-23] MEDS ORDERED: BISMUTH SUBSALICYLATE 524 MG/30 ML UD PO PRN (10:36)
[2020-10-23] MEDS ORDERED: IBUPROFEN 400 MG TABLET (FP) PO PRN (10:36)
[2020-10-23] MEDS ORDERED: MAG HYDROX/AL HYDROX/SIMETH 30 ML UNIT-DOSE CUP PO PRN (10:36)
[2020-10-23] MEDS ORDERED: ONDANSETRON *ODT* 4 MG TABLET SL PRN (10:36)
[2020-10-23] MEDS ORDERED: ACETAMINOPHEN 325 MG TABLET (FP) PO PRN ×2 (10:36)
[2020-10-23] MEDS ORDERED: MAGNESIUM HYDROX 2400MG/30ML ORAL SUSPENSION 30 ML CUP PO PRN (10:36)
[2020-10-23] MEDS: chlordiazePOXIDE HCL 25 MG CAPSULE PO SCH ×2 (17:39→22:15)
[2020-10-23] MEDS: MELATONIN 5 MG TABLETS PO SCH (22:15)
[2020-10-23] MEDS: THIAMINE HCL 100 MG TABLET (FP) PO SCH (22:15)
[2020-10-23 23:04] LABS: EPI CELLS 29 /uL (0-25.1); HYALINE CASTS 3 /uL (0-3.1); PH,URINE 5.5 (5.0-8.0); URINE APPEARANCE CLEAR; URINE BACTERIA 143 /uL (0-1359); URINE BILIRUBIN 1+ (NEGATIVE); URINE COLOR DK YELLOW; URINE GLUCOSE (UA) NEGATIVE (NEGATIVE); URINE KETONE TRACE (NEGATIVE); URINE LEUK ESTERASE NEGATIVE (NEGATIVE); URINE NITRITE NEGATIVE (NEGATIVE); URINE PROTEIN 1+ (NEGATIVE); URINE RBC 7 /uL (0-23.9); URINE WBC 28 /uL (0-25.8)
[2020-10-24] MEDS: chlordiazePOXIDE HCL 25 MG CAPSULE PO SCH ×4 (05:23→22:11)
[2020-10-24] MEDS: PRENATAL VITAMINS W/ FOLIC ACID TABLET (FP) PO SCH (10:10)
[2020-10-24 12:19] LABS: POTASSIUM 3.7 mmol/L (3.5-5.1)
[2020-10-24 12:21] LABS: CALCIUM 8.7 mg/dL (8.5-10.1); HEMATOCRIT 40.1 % (35.4-49); HEMOGLOBIN 13.5 GM/dL (11.7-16.9); MCH 29.7 pg (25.7-33.7); MCHC 33.6 g/dl (32.0-35.9); MEAN CELL VOLUME 88.3 fl (80-96); PLATELET COUNT 237 K/MM3 (134-434); RBC 4.55 M/mm3 (4.00-5.60); RDW 14.8 % (11.9-15.9); WHITE BLOOD COUNT 3.3 K/mm3 (4.0-10.0)
[2020-10-24 12:22] LABS: ALBUMIN 3.3 g/dl (3.4-5.0); BLOOD UREA NITROGEN 17.4 mg/dL (7-18)
[2020-10-24 12:26] LABS: BILIRUBIN,TOTAL 0.6 mg/dL (0.2-1); TOT PROT 6.3 g/dl (6.4-8.2)
[2020-10-24] MEDS: THIAMINE HCL 100 MG TABLET (FP) PO SCH (22:11)
[2020-10-24] MEDS: MELATONIN 5 MG TABLETS PO SCH (22:11)
[2020-10-25] MEDS: chlordiazePOXIDE HCL 25 MG CAPSULE PO SCH ×4 (05:51→22:15)
[2020-10-25] MEDS: PRENATAL VITAMINS W/ FOLIC ACID TABLET (FP) PO SCH (10:19)
[2020-10-25] MEDS: MELATONIN 5 MG TABLETS PO SCH (22:15)
[2020-10-25] MEDS: THIAMINE HCL 100 MG TABLET (FP) PO SCH (22:15)
[2020-10-26] MEDS ORDERED: chlordiazePOXIDE HCL 10 MG CAPSULE PO PRN
[2020-10-26] MEDS: chlordiazePOXIDE HCL 10 MG CAPSULE PO SCH ×2 (06:23→10:54)
[2020-10-26 07:03] VITALS: BP 105/67; PULSE 74; TEMP 97.8
[2020-10-26] MEDS: PRENATAL VITAMINS W/ FOLIC ACID TABLET (FP) PO SCH (10:54)
[2020-10-27] MEDS ORDERED: chlordiazePOXIDE HCL 10 MG CAPSULE PO SCH (05:00)
[2020-10-28] MEDS ORDERED: chlordiazePOXIDE HCL 10 MG CAPSULE PO ONE (05:00)
== END 2020-10-26 08:35 | disposition home or self-care (01) | DRG 774 ==
LOC: YASAS 09:47 → Y3N 10:42
PROVIDERS: ADMIT Allergy & Immunology; ATTEND Allergy & Immunology
PROC: HZ2ZZZZ Detoxification Services for Substance Abuse Treatment (ICD-10-PCS; principal; 2020-10-23)
DX: F10.230 Alcohol dependence with withdrawal, uncomplicated (principal); F14.20 Cocaine dependence, uncomplicated; F13.20 Sedative, hypnotic or anxiolytic dependence, uncomplicated; F15.10 Other stimulant abuse, uncomplicated; F17.210 Nicotine dependence, cigarettes, uncomplicated; R55 Syncope and collapse; R63.4 Abnormal weight loss; Z68.27 Body mass index [BMI] 27.0-27.9, adult; Z86.19 Personal history of other infectious and parasitic diseases; Z56.0 Unemployment, unspecified; Z59.0 Homelessness; Z91.013 Allergy to seafood
CPT/HCPCS: 36415; 80053; 81003; 85027; 86593; 86780; 87389; 93005; 93010; C9803; U0003

== ENCOUNTER 2021-01-10 11:01 | Inpatient (IN) | payer OTHER ==
[2021-01-10 12:07] VITALS: BMI 27.8
[2021-01-10] MEDS ORDERED: IBUPROFEN 400 MG TABLET (FP) PO PRN (13:31)
[2021-01-10] MEDS ORDERED: BISMUTH SUBSALICYLATE 524 MG/30 ML UD PO PRN (13:31)
[2021-01-10] MEDS ORDERED: MAG HYDROX/AL HYDROX/SIMETH 30 ML UNIT-DOSE CUP PO PRN (13:31)
[2021-01-10] MEDS ORDERED: ONDANSETRON *ODT* 4 MG TABLET SL PRN (13:31)
[2021-01-10] MEDS ORDERED: MENTHOL/PHENOL 1 EACH UD MM PRN (13:31)
[2021-01-10] MEDS ORDERED: NICOTINE POLACRILEX 2 MG GUM BUC PRN (13:31)
[2021-01-10] MEDS ORDERED: MAGNESIUM HYDROX 2400MG/30ML ORAL SUSPENSION 30 ML CUP PO PRN (13:31)
[2021-01-10] MEDS ORDERED: MAGNESIUM CITRATE 300 ML BOTTLE PO PRN (13:31)
[2021-01-10] MEDS ORDERED: ACETAMINOPHEN 325 MG TABLET (FP) PO PRN ×2 (13:31)
[2021-01-10] MEDS ORDERED: chlordiazePOXIDE HCL 25 MG CAPSULE PO PRN (13:31)
[2021-01-10] MEDS: hydrOXYzine PAMOATE 25 MG CAPSULE (FP) PO SCH ×3 (14:23→21:46)
[2021-01-10 17:14] LABS: HEMATOCRIT 46.8 % (35.4-49); HEMOGLOBIN 15.6 GM/dL (11.7-16.9); MCH 29.8 pg (25.7-33.7); MCHC 33.3 g/dl (32.0-35.9); MEAN CELL VOLUME 89.7 fl (80-96); MEAN PLT VOLUME 8.4 fl (7.5-11.1); PLATELET COUNT 346 K/MM3 (134-434); RBC 5.22 M/mm3 (4.00-5.60)
[2021-01-10 17:21] LABS: CALCIUM 9.1 mg/dL (8.5-10.1)
[2021-01-10 17:22] LABS: ALBUMIN 4.3 g/dl (3.4-5.0); BLOOD UREA NITROGEN 9.8 mg/dL (7-18)
[2021-01-10 17:26] LABS: BILIRUBIN,TOTAL 0.8 mg/dL (0.2-1); TOT PROT 7.9 g/dl (6.4-8.2)
[2021-01-10] MEDS: chlordiazePOXIDE HCL 25 MG CAPSULE PO SCH ×2 (17:41→22:58)
[2021-01-10] MEDS: THIAMINE HCL 100 MG TABLET (FP) PO SCH (21:46)
[2021-01-10] MEDS: MELATONIN 5 MG TABLETS PO SCH (21:46)
[2021-01-11] MEDS: hydrOXYzine PAMOATE 25 MG CAPSULE (FP) PO SCH ×5 (05:36→22:38)
[2021-01-11] MEDS: chlordiazePOXIDE HCL 25 MG CAPSULE PO SCH ×4 (05:37→22:38)
[2021-01-11] MEDS: PRENATAL VITAMINS W/ FOLIC ACID TABLET (FP) PO SCH (10:26)
[2021-01-11] MEDS: THIAMINE HCL 100 MG TABLET (FP) PO SCH (22:38)
[2021-01-11] MEDS: MELATONIN 5 MG TABLETS PO SCH (22:38)
[2021-01-12] MEDS: hydrOXYzine PAMOATE 25 MG CAPSULE (FP) PO SCH ×5 (05:17→22:13)
[2021-01-12] MEDS: chlordiazePOXIDE HCL 25 MG CAPSULE PO SCH ×4 (05:18→22:14)
[2021-01-12] MEDS: PRENATAL VITAMINS W/ FOLIC ACID TABLET (FP) PO SCH (10:27)
[2021-01-12] MEDS: METHOCARBAMOL 500 MG TABLET PO PRN (17:26)
[2021-01-12] MEDS: MELATONIN 5 MG TABLETS PO SCH (22:13)
[2021-01-12] MEDS: THIAMINE HCL 100 MG TABLET (FP) PO SCH (22:14)
[2021-01-13] MEDS ORDERED: chlordiazePOXIDE HCL 10 MG CAPSULE PO PRN
[2021-01-13] MEDS: chlordiazePOXIDE HCL 10 MG CAPSULE PO SCH ×4 (07:35→22:00)
[2021-01-13] MEDS: hydrOXYzine PAMOATE 25 MG CAPSULE (FP) PO SCH ×6 (07:36→22:01)
[2021-01-13 08:09] LABS: SARS-CoV-2 NAA Not Detected (Not Detected)
[2021-01-13] MEDS: PRENATAL VITAMINS W/ FOLIC ACID TABLET (FP) PO SCH (10:14)
[2021-01-13] MEDS: MELATONIN 5 MG TABLETS PO SCH (22:01)
[2021-01-13] MEDS: THIAMINE HCL 100 MG TABLET (FP) PO SCH (22:44)
[2021-01-14] MEDS: chlordiazePOXIDE HCL 10 MG CAPSULE PO SCH ×2 (06:39→17:38)
[2021-01-14] MEDS: hydrOXYzine PAMOATE 25 MG CAPSULE (FP) PO SCH ×5 (06:39→21:39)
[2021-01-14] MEDS: PRENATAL VITAMINS W/ FOLIC ACID TABLET (FP) PO SCH (09:54)
[2021-01-14] MEDS: MELATONIN 5 MG TABLETS PO SCH (21:39)
[2021-01-14] MEDS: THIAMINE HCL 100 MG TABLET (FP) PO SCH (21:39)
[2021-01-14] MEDS: METHOCARBAMOL 500 MG TABLET PO PRN (21:40)
[2021-01-15] MEDS ORDERED: chlordiazePOXIDE HCL 10 MG CAPSULE PO ONE (05:00)
[2021-01-15] MEDS: hydrOXYzine PAMOATE 25 MG CAPSULE (FP) PO SCH ×5 (06:21→22:22)
[2021-01-15] MEDS: METHOCARBAMOL 500 MG TABLET PO PRN ×2 (10:29→17:26)
[2021-01-15] MEDS: PRENATAL VITAMINS W/ FOLIC ACID TABLET (FP) PO SCH (10:30)
[2021-01-15] MEDS: MELATONIN 5 MG TABLETS PO SCH (22:22)
[2021-01-15] MEDS: THIAMINE HCL 100 MG TABLET (FP) PO SCH (22:23)
[2021-01-16] MEDS: hydrOXYzine PAMOATE 25 MG CAPSULE (FP) PO SCH ×2 (06:24→10:37)
[2021-01-16] MEDS: PRENATAL VITAMINS W/ FOLIC ACID TABLET (FP) PO SCH (10:36)
[2021-01-16] MEDS: MELATONIN 5 MG TABLETS PO SCH (22:01)
[2021-01-16] MEDS: THIAMINE HCL 100 MG TABLET (FP) PO SCH (22:01)
[2021-01-17 07:21] VITALS: PULSE 68; TEMP 97.1
[2021-01-17 09:19] VITALS: BP 107/70
== END 2021-01-17 08:45 | disposition home or self-care (01) | DRG 774 ==
LOC: YASAS 11:01 → Y3N 12:41
PROVIDERS: ADMIT Allergy & Immunology; ATTEND Allergy & Immunology
PROC: HZ2ZZZZ Detoxification Services for Substance Abuse Treatment (ICD-10-PCS; principal; 2021-01-10)
DX: F10.230 Alcohol dependence with withdrawal, uncomplicated (principal); F14.20 Cocaine dependence, uncomplicated; F13.10 Sedative, hypnotic or anxiolytic abuse, uncomplicated; F17.210 Nicotine dependence, cigarettes, uncomplicated; Z86.19 Personal history of other infectious and parasitic diseases; Z56.0 Unemployment, unspecified; Z59.0 Homelessness
CPT/HCPCS: 36415; 80053; 85027; 86593; 86780; C9803; U0003; U0005

== ENCOUNTER 2021-09-12 14:00 | Inpatient (IN) | payer OTHER ==
[2021-09-12] MEDS ORDERED: diazePAM 5 MG TABLET PO PRN (15:56)
[2021-09-12] MEDS ORDERED: ONDANSETRON *ODT* 4 MG TABLET SL PRN (15:56)
[2021-09-12] MEDS ORDERED: MENTHOL/PHENOL 1 EACH UD MM PRN (15:56)
[2021-09-12] MEDS ORDERED: MAGNESIUM HYDROX 2400MG/30ML ORAL SUSPENSION 30 ML CUP PO PRN (15:56)
[2021-09-12] MEDS ORDERED: ACETAMINOPHEN 325 MG TABLET (FP) PO PRN ×2 (15:56)
[2021-09-12] MEDS ORDERED: NICOTINE 10 MG CARTRIDGE (INHALER) IH PRN (15:56)
[2021-09-12] MEDS ORDERED: BISMUTH SUBSALICYLATE 524 MG/30 ML PO PRN (15:56)
[2021-09-12] MEDS ORDERED: METHOCARBAMOL 500 MG TABLET PO PRN (15:56)
[2021-09-12] MEDS ORDERED: MAGNESIUM CITRATE 300 ML BOTTLE PO PRN (15:56)
[2021-09-12] MEDS ORDERED: IBUPROFEN 400 MG TABLET (FP) PO PRN (15:56)
[2021-09-12] MEDS ORDERED: MAG HYDROX/AL HYDROX/SIMETH 30 ML UNIT-DOSE CUP PO PRN (15:56)
[2021-09-12 17:20] VITALS: BMI 29.0
[2021-09-12] MEDS: hydrOXYzine PAMOATE 25 MG CAPSULE (FP) PO SCH ×2 (18:28→23:11)
[2021-09-12] MEDS: diazePAM 5 MG TABLET PO SCH ×2 (18:28→23:11)
[2021-09-12] MEDS: MELATONIN 5 MG TABLETS PO SCH (23:10)
[2021-09-12] MEDS: THIAMINE HCL 100 MG TABLET (FP) PO SCH (23:10)
[2021-09-13] MEDS: hydrOXYzine PAMOATE 25 MG CAPSULE (FP) PO SCH ×5 (06:00→22:05)
[2021-09-13] MEDS: diazePAM 5 MG TABLET PO SCH ×4 (06:01→22:06)
[2021-09-13] MEDS: PRENATAL VITAMINS W/ FOLIC ACID TABLET (FP) PO SCH (10:38)
[2021-09-13 12:16] LABS: HEMOGLOBIN 13.7 GM/dL (11.7-16.9); MCH 29.8 pg (25.7-33.7); MCHC 33.5 g/dl (32.0-35.9); MEAN PLT VOLUME 8.4 fl (7.5-11.1); PLATELET COUNT 246 10^3/uL (134-434); RBC 4.61 M/mm3 (4.00-5.60); RDW 14.1 % (11.9-15.9); WHITE BLOOD COUNT 4.3 K/mm3 (4.0-10.0)
[2021-09-13 12:26] LABS: CALCIUM 8.8 mg/dL (8.5-10.1)
[2021-09-13 12:27] LABS: ALBUMIN 3.1 g/dl (3.4-5.0); BLOOD UREA NITROGEN 17.5 mg/dL (7-18)
[2021-09-13 12:30] LABS: CREATININE 1.1 mg/dL (0.55-1.3)
[2021-09-13 12:32] LABS: BILIRUBIN,TOTAL 0.4 mg/dL (0.2-1); TOT PROT 6.4 g/dl (6.4-8.2)
[2021-09-13] MEDS: THIAMINE HCL 100 MG TABLET (FP) PO SCH (22:05)
[2021-09-13] MEDS: MELATONIN 5 MG TABLETS PO SCH (22:06)
[2021-09-14] MEDS: hydrOXYzine PAMOATE 25 MG CAPSULE (FP) PO SCH ×5 (05:38→22:30)
[2021-09-14] MEDS: diazePAM 5 MG TABLET PO SCH ×3 (05:38→22:28)
[2021-09-14] MEDS: PRENATAL VITAMINS W/ FOLIC ACID TABLET (FP) PO SCH (10:02)
[2021-09-14] MEDS: MELATONIN 5 MG TABLETS PO SCH (22:29)
[2021-09-14] MEDS: THIAMINE HCL 100 MG TABLET (FP) PO SCH (22:30)
[2021-09-15] MEDS: diazePAM 5 MG TABLET PO SCH ×2 (06:43→18:11)
[2021-09-15] MEDS: hydrOXYzine PAMOATE 25 MG CAPSULE (FP) PO SCH ×5 (06:43→22:45)
[2021-09-15] MEDS: PRENATAL VITAMINS W/ FOLIC ACID TABLET (FP) PO SCH (10:34)
[2021-09-15] MEDS: MELATONIN 5 MG TABLETS PO SCH (22:45)
[2021-09-15] MEDS: THIAMINE HCL 100 MG TABLET (FP) PO SCH (22:45)
[2021-09-15 23:04] VITALS: TEMP 97.1
[2021-09-16] MEDS ORDERED: diazePAM 5 MG TABLET PO ONE (06:00)
[2021-09-16] MEDS: hydrOXYzine PAMOATE 25 MG CAPSULE (FP) PO SCH (07:38)
[2021-09-16 07:47] VITALS: BP 104/59; PULSE 72
== END 2021-09-16 09:52 | disposition home or self-care (01) | DRG 774 ==
LOC: YASAS 14:00 → Y6N 17:24
PROVIDERS: ADMIT Allergy & Immunology; ATTEND Allergy & Immunology
PROC: HZ2ZZZZ Detoxification Services for Substance Abuse Treatment (ICD-10-PCS; principal; 2021-09-12)
DX: F10.230 Alcohol dependence with withdrawal, uncomplicated (principal); F13.230 Sedative, hypnotic or anxiolytic dependence with withdrawal, uncomplicated; F14.20 Cocaine dependence, uncomplicated; F17.210 Nicotine dependence, cigarettes, uncomplicated; R73.09 Other abnormal glucose; R00.0 Tachycardia, unspecified; Z86.19 Personal history of other infectious and parasitic diseases; Z91.013 Allergy to seafood; Z56.0 Unemployment, unspecified; Z59.00 Homelessness unspecified
CPT/HCPCS: 36415; 80053; 85027; 86593; 86780; C9803; U0003; U0005

== ENCOUNTER 2022-12-08 12:27 | Inpatient (IN) | payer OTHER ==
[2022-12-08 14:31] VITALS: BMI 25.4
[2022-12-08] MEDS ORDERED: hydrOXYzine PAMOATE 25 MG CAPSULE (FP) PO PRN (15:17)
[2022-12-08] MEDS ORDERED: POLYETHYLENE GLYCOL (HEALTHYLAX) 3350 17 GM PACKET PO PRN (15:17)
[2022-12-08] MEDS ORDERED: BENZOCAINE/MENTHOL (CHLORASEPTIC ) LOZENGE MM PRN (15:17)
[2022-12-08] MEDS ORDERED: LOPERAMIDE HCL 2 MG CAPSULE PO PRN (15:17)
[2022-12-08] MEDS ORDERED: BISMUTH SUBSALICYLATE 262 MG/15 ML BTL PO PRN (15:17)
[2022-12-08] MEDS ORDERED: ACETAMINOPHEN 325 MG TABLET (FP) PO PRN ×2 (15:17)
[2022-12-08] MEDS ORDERED: ONDANSETRON *ODT* 4 MG TABLET SL PRN (15:17)
[2022-12-08] MEDS ORDERED: DICYCLOMINE HCL 10 MG CAPSULE PO PRN (15:17)
[2022-12-08] MEDS ORDERED: METHOCARBAMOL 500 MG TABLET PO PRN (15:17)
[2022-12-08] MEDS ORDERED: IBUPROFEN 400 MG TABLET (FP) PO PRN (15:17)
[2022-12-08] MEDS ORDERED: MAGNESIUM HYDROX 2400MG/30ML ORAL SUSPENSION 30 ML CUP PO PRN (15:17)
[2022-12-08] MEDS ORDERED: NALOXONE HCL 0.4 MG/ML VIAL IM PRN (15:17)
[2022-12-08] MEDS ORDERED: IBUPROFEN 600 MG TABLET (FP) PO PRN (15:17)
[2022-12-08] MEDS ORDERED: NALOXONE HCL (KLOXXADO) 8 MG SPRAY NS PRN (15:17)
[2022-12-08] MEDS ORDERED: MAG HYDROX/AL HYDROX/SIMETH 30 ML UNIT-DOSE CUP PO PRN (15:17)
[2022-12-08] MEDS: chlordiazePOXIDE HCL 25 MG CAPSULE PO SCH ×2 (23:35→23:59)
[2022-12-09] MEDS: THIAMINE HCL 100 MG TABLET (FP) PO SCH ×2 (00:02→22:33)
[2022-12-09] MEDS: chlordiazePOXIDE HCL 25 MG CAPSULE PO SCH ×5 (06:00→22:33)
[2022-12-09 09:21] LABS: EPI CELLS 7 /uL (0-25.1); HYALINE CASTS 1 /uL (0-3.1); URINE APPEARANCE CLEAR; URINE BACTERIA 13 /uL (0-1359); URINE BILIRUBIN NEGATIVE (NEGATIVE); URINE COLOR YELLOW; URINE GLUCOSE (UA) NEGATIVE (NEGATIVE); URINE KETONE TRACE (NEGATIVE); URINE LEUK ESTERASE TRACE (NEGATIVE); URINE NITRITE NEGATIVE (NEGATIVE); URINE PROTEIN TRACE (NEGATIVE); URINE RBC 3 /uL (0-23.9); URINE WBC 39 /uL (0-25.8)
[2022-12-09 10:08] LABS: HEMOGLOBIN 13.5 GM/dL (11.7-16.9); MCHC 32.9 g/dl (32.0-35.9); MEAN CELL VOLUME 91.1 fl (80-96); MEAN PLT VOLUME 7.8 fl (7.5-11.1); PLATELET COUNT 227 10^3/uL (134-434); RBC 4.49 M/mm3 (4.00-5.60); RDW 13.7 % (11.9-15.9); WHITE BLOOD COUNT 3.4 K/mm3 (4.0-10.0)
[2022-12-09] MEDS: PRENATAL VITAMINS W/ FOLIC ACID TABLET (FP) PO SCH (10:22)
[2022-12-09 10:35] LABS: ALBUMIN 2.5 g/dl (3.4-5.0); BLOOD UREA NITROGEN 15.2 mg/dL (7-18); CALCIUM 8.1 mg/dL (8.5-10.1)
[2022-12-09 10:38] LABS: CREATININE 0.9 mg/dL (0.55-1.3)
[2022-12-09 10:40] LABS: BILIRUBIN,TOTAL 0.3 mg/dL (0.2-1); TOT PROT 4.9 g/dl (6.4-8.2)
[2022-12-09] MEDS: LACTULOSE 20 GM/30 ML UDC (FOR ORAL USE ONLY) PO SCH ×3 (14:01→22:33)
[2022-12-09] MEDS: MELATONIN 5 MG TABLETS PO SCH ×2 (22:33)
[2022-12-10] MEDS: chlordiazePOXIDE HCL 25 MG CAPSULE PO SCH ×2 (06:08→10:42)
[2022-12-10] MEDS: LACTULOSE 20 GM/30 ML UDC (FOR ORAL USE ONLY) PO SCH ×2 (10:42→13:23)
[2022-12-10] MEDS: PRENATAL VITAMINS W/ FOLIC ACID TABLET (FP) PO SCH (10:42)
[2022-12-10 14:48] VITALS: BP 122/82; PULSE 90; RESP 16; TEMP 97.5
[2022-12-11] MEDS ORDERED: chlordiazePOXIDE HCL 10 MG CAPSULE PO SCH (05:00)
[2022-12-12] MEDS ORDERED: chlordiazePOXIDE HCL 10 MG CAPSULE PO SCH (05:00)
[2022-12-13] MEDS ORDERED: chlordiazePOXIDE HCL 10 MG CAPSULE PO ONE (05:00)
== END 2022-12-10 15:11 | disposition left against medical advice (07) | DRG 770 ==
LOC: YASAS 12:27 → Y3N 15:24
PROVIDERS: ADMIT Allergy & Immunology; ATTEND Surgery
PROC: HZ2ZZZZ Detoxification Services for Substance Abuse Treatment (ICD-10-PCS; principal; 2022-12-08)
DX: F10.230 Alcohol dependence with withdrawal, uncomplicated (principal); F14.20 Cocaine dependence, uncomplicated; F17.213 Nicotine dependence, cigarettes, with withdrawal; U07.1 COVID-19; E72.20 Disorder of urea cycle metabolism, unspecified; Z86.19 Personal history of other infectious and parasitic diseases; Z28.311 Partially vaccinated for COVID-19
CPT/HCPCS: 36415; 80053; 81003; 82140; 85027; 86593; 86780; 93005; 93010; C9803-CS; U0003; U0005

== ENCOUNTER 2024-12-14 16:21 | Inpatient (IN) | payer OTHER ==
[2024-12-14 16:41] VITALS: BMI 27.8
[2024-12-14] MEDS ORDERED: MAG HYDROX/AL HYDROX/SIMETH 30 ML UNIT-DOSE CUP PO PRN (16:57)
[2024-12-14] MEDS ORDERED: DICYCLOMINE HCL 10 MG CAPSULE PO PRN (16:57)
[2024-12-14] MEDS ORDERED: LOPERAMIDE HCL 2 MG CAPSULE PO PRN (16:57)
[2024-12-14] MEDS ORDERED: NICOTINE POLACRILEX 2 MG LOZENGE BC PRN (16:57)
[2024-12-14] MEDS ORDERED: hydrOXYzine PAMOATE 25 MG CAPSULE (FP) PO PRN (16:57)
[2024-12-14] MEDS ORDERED: MAGNESIUM HYDROX 2400MG/30ML ORAL SUSPENSION 30 ML CUP PO PRN (16:57)
[2024-12-14] MEDS ORDERED: POLYETHYLENE GLYCOL (HEALTHYLAX) 3350 17 GM PACKET PO PRN (16:57)
[2024-12-14] MEDS ORDERED: ACETAMINOPHEN 325 MG TABLET (FP) PO PRN (16:57)
[2024-12-14] MEDS ORDERED: ONDANSETRON *ODT* 4 MG TABLET SL PRN (16:57)
[2024-12-14] MEDS ORDERED: NALOXONE (NARCAN) HCL 4 MG/0.1 ML SPRAY NS PRN (16:57)
[2024-12-14] MEDS ORDERED: BISMUTH SUBSALICYLATE 524 MG/30 ML PO PRN (16:57)
[2024-12-14] MEDS ORDERED: BENZONATATE 200 MG CAPSULE PO PRN (16:57)
[2024-12-14] MEDS ORDERED: guaiFENesin 600 MG TABLET.ER (FP) PO PRN (16:57)
[2024-12-14] MEDS ORDERED: BENZOCAINE/MENTHOL (CHLORASEPTIC ) LOZENGE MM PRN (16:57)
[2024-12-14] MEDS ORDERED: IBUPROFEN 600 MG TABLET (FP) PO PRN (16:57)
[2024-12-14] MEDS ORDERED: IBUPROFEN 400 MG TABLET (FP) PO PRN (16:57)
[2024-12-14] MEDS ORDERED: NICOTINE POLACRILEX 2 MG GUM BUC PRN (16:57)
[2024-12-14] MEDS ORDERED: diazePAM 5 MG TABLET PO PRN (16:58)
[2024-12-14] MEDS ORDERED: diazePAM 5 MG TABLET ONE (17:09)
[2024-12-14] MEDS ORDERED: METOPROLOL TARTRATE 25 MG TABLET (FP) ONE (17:09)
[2024-12-14] MEDS: diazePAM 5 MG TABLET PO SCH (17:21)
[2024-12-14] MEDS: METOPROLOL TARTRATE 25 MG TABLET (FP) PO ONE (17:21)
[2024-12-14] MEDS: MELATONIN 5 MG TABLETS PO SCH (22:34)
[2024-12-14] MEDS: THIAMINE 100 MG TABLET PO SCH (22:34)
[2024-12-14] MEDS: METHOCARBAMOL 500 MG TABLET PO PRN (22:35)
[2024-12-15] MEDS: PRENATAL VITAMINS W/ FOLIC ACID TABLET (FP) PO SCH (10:12)
[2024-12-15 11:22] LABS: HEMATOCRIT 40.2 % (35.4-49); HEMOGLOBIN 12.9 GM/dL (11.7-16.9); MCH 29.1 pg (25.7-33.7); MCHC 32.2 g/dl (32.0-35.9); MEAN CELL VOLUME 90.5 fl (80-96); MEAN PLT VOLUME 8.3 fl (7.5-11.1); PLATELET COUNT 297 10^3/uL (134-434); RBC 4.44 M/mm3 (4.00-5.60); RDW 14.3 % (11.9-15.9)
[2024-12-15 11:27] LABS: CHLORIDE 100 mmol/L (98-107); POTASSIUM 3.7 mmol/L (3.5-5.1); SODIUM 138 mmol/L (136-145)
[2024-12-15] MEDS: METOPROLOL TARTRATE 25 MG TABLET (FP) PO ONE (11:32)
[2024-12-15 11:42] LABS: ALBUMIN 3.1 g/dl (3.4-5.0); ANION GAP 6 mmol/L (4-13); BLOOD UREA NITROGEN 17.3 mg/dL (7-18); CO2 32 mmol/L (21-32); GLUCOSE,RANDOM 107 mg/dL (74-106)
[2024-12-15 11:45] LABS: BILIRUBIN,TOTAL 1.2 mg/dL (0.2-1); CREATININE 0.8 mg/dL (0.55-1.3); SGOT/AST 28 U/L (15-37); SGPT/ALT 42 U/L (13-61); TOT PROT 5.9 g/dl (6.4-8.2)
[2024-12-15 11:49] LABS: ALK PHOS 96 U/L (45-117)
[2024-12-15] MEDS: METOPROLOL TARTRATE 25 MG TABLET (FP) PO SCH (22:33)
[2024-12-16] MEDS: diazePAM 5 MG TABLET PO SCH (06:23)
[2024-12-17] MEDS: diazePAM 5 MG TABLET PO SCH (05:48)
[2024-12-17 13:49] VITALS: RESP 18
[2024-12-18] MEDS: diazePAM 5 MG TABLET PO ONE (06:28)
[2024-12-18] MEDS ORDERED: NALTREXONE HCL 50 MG TABLET PO ONE (09:30)
[2024-12-18 10:45] VITALS: BP 126/73; PULSE 73; TEMP 98
== END 2024-12-18 10:16 | disposition home or self-care (01) | DRG 774 ==
LOC: YASAS 16:21 → Y6N 17:15
PROVIDERS: ADMIT Allergy & Immunology; ATTEND Allergy & Immunology
PROC: HZ2ZZZZ Detoxification Services for Substance Abuse Treatment (ICD-10-PCS; principal; 2024-12-14)
DX: F10.230 Alcohol dependence with withdrawal, uncomplicated (principal); F13.230 Sedative, hypnotic or anxiolytic dependence with withdrawal, uncomplicated; F14.20 Cocaine dependence, uncomplicated; F15.20 Other stimulant dependence, uncomplicated; F17.210 Nicotine dependence, cigarettes, uncomplicated; I10 Essential (primary) hypertension; Z20.2 Contact with and (suspected) exposure to infections with a predominantly sexual mode of transmission
CPT/HCPCS: 36415; 80053; 80305; 80307; 85027; 86593; 86780; 93005; 93010